=== PATIENT | male | born 1945 | race Caucasian/White ===

== ENCOUNTER 2017-05-16 08:26 | Emergency (ER) | payer OTHER, MEDICARE ==
--- NOTE | 2017-05-16 08:47 | EDPHY ---
H & P Time Seen by Provider: 05/16/17 08:41 HPI/ROS: Chief complaint. Cough, joint pain, fever HPI. 71-year-old male 4 day history of upper respiratory symptoms and congestion. He has been using [id number] medications. He has been coughing that is dry and nonproductive. Low-grade fevers at home to 99 degrees. No shortness of breath or chest discomfort. Feels achy in all his joints but they are not swollen. No abdominal pain, vomiting/diarrhea, urinary symptoms. No rash. No recent travel or known exposures to Infectious Disease. ROS Constitutional. Fever Eyes. no problems with vision ENT. Slight sore throat and congestion Cardiovascular. no chest pain Respiratory. Cough but no shortness of breath Abdominal. no abdominal pain, no nausea/vomiting, no diarrhea . no problems urinating MS. no calf pain/swelling, no neck/back pain; joint pain and myalgias Skin. no rash Lymph. no swollen glands Neuro. no headache, no dizziness, no difficulty walking or with speech Past Medical/Surgical History: Hypertension, hypothyroid Social History: , nonsmoker, no alcohol Smoking Status: Never smoked Physical Exam: General Appearance: Alert well-developed male mild distress vital signs are stable. Afebrile Eyes: Pupils equal and round no pallor or injection. ENT, Mouth: Mucous membranes are moist. Pharynx mildly injected without exudate. Respiratory: There are no retractions, lungs are clear to auscultation. Cardiovascular: Regular rate and rhythm. Gastrointestinal: Abdomen is soft and nontender, no masses, bowel sounds normal. Neurological: Awake and alert, sensory and motor exams grossly normal. Skin: Warm and dry, no rashes. Musculoskeletal: Neck is supple nontender. Extremities symmetrical, full range of motion. Psychiatric: Patient is oriented X 3, there is no agitation. Constitutional: Initial Vital Signs Temperature (C) 37.0 C 05/16/17 08:30 Heart Rate 88 05/16/17 08:30 Respiratory Rate 18 05/16/17 08:30 Blood Pressure 156/82 H 05/16/17 08:30 O2 Sat (%) 94 05/16/17 08:30 O2 Delivery Mode Room Air Allergies/Adverse Reactions: No Known Allergies Allergy (Unverified 05/16/17 08:28) Home Medications: Medication Instructions Recorded Azithromycin [Zithromax] 250 mg PO DAILY #6 tab 05/16/17 Benzonatate [Tessalon Pearles (RX)] 100 mg PO Q4-6PRN PRN #14 cap 05/16/17 HCTZ (*) 05/16/17 Levothyroxine 05/16/17 Lisinopril 05/16/17 Medical Decision Making - Diagnostics Imaging Results: Imaging Impressions Chest X-Ray 05/16/17 08:47 Impression: 1. Mild airways disease/bronchitis. 2. No pneumonia or effusion. Chest x-ray reviewed by me shows no evidence of pneumonia Procedures: IV normal saline ED Course/Re-evaluation: Recheck at 10:10 a.m.. Patient is stable though coughing. The patient, his , and I reviewed laboratory evaluation and chest x-ray. Patient does not have influenza by swab. He does have significant hyponatremia. I recommended admission for the patient. He refuses and we discussed risks and benefits of low sodium in the importance of having it recheck tomorrow as it may be lower tomorrow and require admission. He expresses understanding and agreement. We are trying to get hold of his regular physician Dr. Moreira to close the loop and make sure the patient gets followed up for his hyponatremia. I will write the patient in outpatient laboratory slip for Chem 7 with results to be sent to Dr. Moreira. Patient expresses agreement with this plan I consulted and discussed the case with Dr. Kurtz on-call for Dr. Moreira who understands the treatment plan and will look for patient's Chem 7 tomorrow more 10:55 a.m. I re discussed this plan with the patient and his . They expressed understanding and agreement Differential Diagnosis: This is likely viral syndrome though negative influenza swabs. It appears the patient is having inappropriate secretion of ADH causing hyponatremia. No evidence for pneumonia - Data Points Laboratory Results: Laboratory Results 05/16/17 08:05 05/16/17 08:05 05/16/17 05/16/17 05/16/17 08:30 08:05 08:05 WBC 12.42 10^3/uL H 10^3/uL (3.80-9.50) RBC 5.06 10^6/uL 10^6/uL (4.40-6.38) Hgb 15.8 g/dL g/dL (13.7-17.5) Hct 43.0 % % (40.0-51.0) MCV 85.0 fL fL (81.5-99.8) MCH 31.2 pg pg (27.9-34.1) MCHC 36.7 g/dL g/dL (32.4-36.7) RDW 12.7 % % (11.5-15.2) Plt Count 245 10^3/uL 10^3/uL (150-400) MPV 8.8 fL fL (8.7-11.7) Neut % (Auto) 68.7 % % (39.3-74.2) Lymph % (Auto) 16.3 % % (15.0-45.0) [place] % (Auto) 11.8 % % (4.5-13.0) Eos % (Auto) 2.0 % % (0.6-7.6) Baso % (Auto) 0.5 % % (0.3-1.7) Nucleat RBC Rel Count 0.0 % % (0.0-0.2) Absolute Neuts (auto) 8.54 10^3/uL H 10^3/uL (1.70-6.50) Absolute Lymphs (auto) 2.02 10^3/uL 10^3/uL (1.00-3.00) Absolute Monos (auto) 1.46 10^3/uL H 10^3/uL (0.30-0.80) Absolute Eos (auto) 0.25 10^3/uL 10^3/uL (0.03-0.40) Absolute Basos (auto) 0.06 10^3/uL 10^3/uL (0.02-0.10) Absolute Nucleated RBC 0.00 10^3/uL 10^3/uL (0-0.01) Immature Gran % 0.7 % % (0.0-1.1) Immature Gran # 0.09 10^3/uL 10^3/uL (0.00-0.10) Sodium 126 mEq/L L mEq/L (135-145) Potassium 4.0 mEq/L mEq/L (3.5-5.2) Chloride 91 mEq/L L mEq/L (97-110) Carbon Dioxide 26 mEq/l mEq/l (22-31) Anion Gap 9 mEq/L mEq/L (8-16) BUN 11 mg/dL mg/dL (7-23) Creatinine 0.7 mg/dL mg/dL (0.7-1.3) Estimated GFR > 60 Glucose 90 mg/dL mg/dL (70-100) Calcium 8.3 mg/dL L mg/dL (8.5-10.4) Nasal Influenza A PCR NEGATIVE FOR FLU A (NEGATIVE) Nasal Influenza B PCR NEGATIVE FOR FLU B (NEGATIVE) Medications Given: Discontinued Medications Sodium Chloride (Ns) 1,000 mls @ 0 mls/hr IV ONCE ONE; Wide Open PRN Reason: Protocol Stop: 05/16/17 08:48 Last Admin: 05/16/17 09:08 Dose: 1,000 mls Departure - Departure Disposition: Home, Routine, Self-Care Clinical Impression: Viral syndrome, Hyponatremia Condition: Fair Instructions: Hyponatremia (ED), Viral Syndrome (ED) Additional Instructions: Zithromax is antibiotic. Tessalon pearls for cough. Return for worsening symptoms. It is important to have your blood drawn and sodium recheck tomorrow. If it is lower you will require hospitalization. Referrals: NICHOLE MOREIRA [Primary Care Provider] - 1 day without fail Prescriptions: Azithromycin [Zithromax] 250 mg PO DAILY #6 tab Benzonatate [Tessalon Pearles (RX)] 100 mg PO Q4-6PRN PRN #14 cap PRN Reason: Cough, Moderate
[2017-05-16 09:00] VITALS: TEMP 98.6
[2017-05-16] MEDS: NS 1,000 ML IV ONE ×2 (09:08→09:13)
[2017-05-16 09:24] LABS: PLATELET COUNT 245 10^3/uL (150-400)
[2017-05-16 11:10] VITALS: BP 136/74; PULSE 90; RESP 16; O2SAT 93
== END 2017-05-16 11:10 | disposition home or self-care (01) ==
DX: B34.9 Viral infection, unspecified (principal); E87.1 Hypo-osmolality and hyponatremia; E86.9 Volume depletion, unspecified; I10 Essential (primary) hypertension

== ENCOUNTER 2017-05-16 20:34 | Inpatient (IN) | payer OTHER, MEDICARE ==
--- NOTE | 2017-05-16 20:56 | EDPHY ---
General Time Seen by Provider: 05/16/17 20:41 Narrative: CHIEF COMPLAINT: Weakness HISTORY OF PRESENT ILLNESS: Patient arrives by ambulance and is seen at time arrival. He complains of weakness and some paresthesia. Weakness has been present for several days. It has been gradual. Constant duration. He has also had a cough that is mostly on productive. Has some body aches, subjective fevers. He was seen earlier this morning with laboratory studies and chest x-ray. There is no evidence of pneumonia. He did have a moderate hyponatremia. He was recommended admission to the hospital but declined. He was discharged home with strict ED precautions and instructions to have a sodium checked again tomorrow morning. This was discussed with the partner of his primary care physician. He said he left, attempted to go shopping and then became even more weak in earlier. He had a short period of paresthesia in both lower extremities and both arms. It was worse on the right than the left. Resolved nearly an hour ago. He has no headache. No neck pain. His denies any facial droop or slurred speech. No other associated complaints or modifying factors. REVIEW OF SYSTEMS: Ten systems reviewed and are negative unless otherwise noted in the HPI PCP: Dr. Moreira SPECIALISTS: None PAST MEDICAL HISTORY: Hypertension, hypothyroid PAST SURGICAL HISTORY: No recent surgeries SOCIAL HISTORY: Nonsmoker. No drug or alcohol use. 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 No wheezing or crackles. Cardiovascular: Tachycardic rate. Regular rhythm. No murmur. Gastrointestinal: Abdomen is soft and nontender Back: non-tender, no bony abnormalities Neurological: GCS 15. A&O, nonfocal, normal gait. Symmetric sensory to the lower extremities. Symmetric sensory to upper extremities. Strength is 4/5 in all 4 extremities. Skin: Warm and dry, no rash no petechiae or purpura. Extremities: Nontender, no pedal edema. Symmetric range of motion. Psychiatric: Mood and affect normal DIFFERENTIAL DIAGNOSES: Including but not limited to hyponatremia, paresthesia, weakness, dehydration, pneumonia, lower respiratory infection, TA, CVA MDM: 8:50 p.m. Increasing weakness with hyponatremia. He did have paresthesia earlier today that resolved. He has no unilateral complaints at this time. His neuro exam does reveal 4/5 strength but is otherwise unremarkable. Mild tachycardia. He was given 100 mL of saline EN route which we have turned off pending the repeat sodium evaluation. 9:30 p.m. Patient re-evaluated. No improvement no worsening. Vital signs remained stable with mild intermittent tachycardia. Sodium as returned at 130 is, which is an improvement from 126 earlier today. I have not ordered any IV fluid 10:15 p.m. Case discussed with hospitalist Dr. Lucila Choi. We discussed the patient's 1st visit this morning and current visit. We discussed admission to her service and he has been admitted in stable condition. He has not yet provided a urine sample. His respiratory pathogen panel is pending. 11:00 p.m. Patient has been admitted in stable condition. Unremarkable stay in the emergency department. Please see the note of Dr. Choi for further care. Respiratory pathogen panel still pending SUPERVISION: Patient was independently examined, but I discussed the case with my secondary supervising physician Dr. Cassidy - History Smoking Status: Never smoked - Objective Vital Signs: Initial Vital Signs Temperature (C) 99.0 F 05/16/17 20:34 Heart Rate 103 H 05/16/17 20:34 Respiratory Rate 16 05/16/17 20:34 Blood Pressure 156/88 H 05/16/17 20:34 O2 Sat (%) 92 05/16/17 20:34 O2 Delivery Mode Room Air Allergies/Adverse Reactions: No Known Allergies Allergy (Unverified 05/16/17 08:28) Home Medications: Medication Instructions Recorded Azithromycin [Zithromax] 250 mg PO DAILY #6 tab 05/16/17 Benzonatate [Tessalon Pearles (RX)] 100 mg PO Q4-6PRN PRN #14 cap 05/16/17 HCTZ (*) 05/16/17 Levothyroxine 05/16/17 Lisinopril 05/16/17 Laboratory Results: Laboratory Results 05/16/17 20:30 05/16/17 20:30 05/16/17 05/16/17 05/16/17 20:30 20:30 20:30 WBC 12.88 10^3/uL H 10^3/uL (3.80-9.50) RBC 5.32 10^6/uL 10^6/uL (4.40-6.38) Hgb 16.5 g/dL g/dL (13.7-17.5) Hct 45.2 % % (40.0-51.0) MCV 85.0 fL fL (81.5-99.8) MCH 31.0 pg pg (27.9-34.1) MCHC 36.5 g/dL g/dL (32.4-36.7) RDW 12.8 % % (11.5-15.2) Plt Count 288 10^3/uL 10^3/uL (150-400) MPV 9.1 fL fL (8.7-11.7) Neut % (Auto) 59.8 % % (39.3-74.2) Lymph % (Auto) 25.3 % % (15.0-45.0) [place] % (Auto) 10.5 % % (4.5-13.0) Eos % (Auto) 3.0 % % (0.6-7.6) Baso % (Auto) 0.5 % % (0.3-1.7) Nucleat RBC Rel Count 0.0 % % (0.0-0.2) Absolute Neuts (auto) 7.71 10^3/uL H 10^3/uL (1.70-6.50) Absolute Lymphs (auto) 3.26 10^3/uL H 10^3/uL (1.00-3.00) Absolute Monos (auto) 1.35 10^3/uL H 10^3/uL (0.30-0.80) Absolute Eos (auto) 0.39 10^3/uL 10^3/uL (0.03-0.40) Absolute Basos (auto) 0.06 10^3/uL 10^3/uL (0.02-0.10) Absolute Nucleated RBC 0.00 10^3/uL 10^3/uL (0-0.01) Immature Gran % 0.9 % % (0.0-1.1) Immature Gran # 0.11 10^3/uL H 10^3/uL (0.00-0.10) Sodium 130 mEq/L L mEq/L (135-145) Potassium 4.2 mEq/L mEq/L (3.5-5.2) Chloride 90 mEq/L L mEq/L (97-110) Carbon Dioxide 23 mEq/l mEq/l (22-31) Anion Gap 17 mEq/L H mEq/L (8-16) BUN 14 mg/dL mg/dL (7-23) Creatinine 0.7 mg/dL mg/dL (0.7-1.3) Estimated GFR > 60 Glucose 105 mg/dL H mg/dL (70-100) Serum Osmolality 273 mosmo/kg L mosmo/kg (280-297) Calcium 8.7 mg/dL mg/dL (8.5-10.4) TSH 3.140 uIU/mL uIU/mL (0.465-4.680) Departure - Departure Disposition: [facility] Inpatient Acute Clinical Impression: Hyponatremia with decreased serum osmolality, Lower respiratory infection Condition: Good
[2017-05-16 21:05] LABS: PLATELET COUNT 288 10^3/uL (150-400)
--- NOTE | 2017-05-16 21:32 | CPEKG ---
Heart Rate: 87 RR Interval: 690 P-R Interval: 216 QRSD Interval: 144 QT Interval: 396 QTC Interval: 477 P [place]: 39 QRS [place]: -17 T Wave [place]: -12 EKG Severity - ABNORMAL ECG - EKG Impression: SINUS RHYTHM EKG Impression: RIGHT BUNDLE BRANCH BLOCK Electronically Signed By: Harmony Cassidy 16-May-2017 23:22:34
[2017-05-16] MEDS ORDERED: ACETAMINOPHEN 325 MG TAB PO PRN (22:39)
[2017-05-16] MEDS ORDERED: HYDROCODONE/APAP 5/325 TAB PO PRN (22:39)
[2017-05-16] MEDS ORDERED: ONDANSETRON 4 MG/2 ML VIAL IVP PRN (22:39)
[2017-05-17 05:07] LABS: PLATELET COUNT 253 10^3/uL (150-400)
[2017-05-17 05:15] LABS: INR 1.1 (0.83-1.16); PROTIME(PATIENT) 14.4 SEC (12.0-15.0)
[2017-05-17] MEDS: LORazepam 2 MG/ML INJ IVP PRN (06:21)
[2017-05-17] MEDS ORDERED: PROPOFOL/EMULSION 1,000 MG/100 ML BOTTLE IV ONE (08:07)
[2017-05-17] MEDS ORDERED: fentanYL/NACL/100 ML BAG IV ONE (08:08)
[2017-05-17] MEDS ORDERED: hydrALAZINE 20 MG/ML VIAL IVP PRN (08:14)
[2017-05-17] MEDS: PROPOFOL/EMULSION 100 ML IV SCH (08:30)
[2017-05-17] MEDS: fentaNYL/NACL 100 ML IV SCH (08:30)
--- NOTE | 2017-05-17 08:35 | GPN ---
[f rep st] PROCEDURE NOTE PROCEDURE: Intubation. INDICATION: Hypercarbic respiratory failure. ANESTHESIA: Patient was given Versed 2 mg and rocuronium 56 IV. DESCRIPTION OF PROCEDURE: Procedure was performed in the intensive care unit. Continuous pulse ox, EKG and blood pressure monitoring. Via GlideScope, patient was intubated with a #7.5 endotracheal tube and taped at 23 cm at the lip. T tonya position was confirmed via capnograph. Patient tolerated the procedure well. There were no apparent complications. Portable chest x-ray has been called for. /[id number]/MODL
--- NOTE | 2017-05-17 08:40 | GHP ---
[f rep st] HISTORY AND PHYSICAL DATE OF ADMISSION: 05/16/2017 SOURCE: Patient provides history, appears reliable, his EMR was reviewed and case discussed with the accepting hospitalist provider. CHIEF COMPLAINT: Weakness and fall with paresthesias. HISTORY OF PRESENT ILLNESS: This is a very pleasant 71-year-old gentleman with past medical history significant for benign essential hypertension, hypothyroidism, who overall is a very healthy gentlema n, who presents to the emergency department for the 2nd time in the same day with complaints of progr essive generalized weakness in bilateral extremities with associated paresthesias. Patient with a re cent upper respiratory infection over the last several days. He reports a positive sick contact of h is girlfriend with whom he lives. Patient is reporting a productive cough with subjective fevers, my algias, and low-grade fever at home. Patient was initially evaluated in the emergency department ear lier in the day and was found to have moderate hyponatremia of 126. Admission was recommended. [place] concepcion, patient declined and he was discharged home with a firm plan to repeat a sodium the following da y with his PCP, who was contacted. The patient reports that he has been having increasing paresthesi as that started in his feet, right greater than the left. He has also had some paresthesias in his u pper extremities bilaterally, on the distal hands. He denies any neck pain. No headache. No change s in vision, difficulty in breathing, or chest pain. Shortly after patient returned home, he subsequently had continued weakness and progressive with a fa ll. The patient denies any head injury, loss of consciousness, and states that his leg gave out and he fell to the floor. He denies any focal pains or joint pains, but complains of bilateral lower ext remity and upper extremity weakness. From the time that patient arrived to the medical floor, over a few hours, he had developed significant weakness in his upper extremities to the point that he was n o longer able to push the call button. He subsequently was not able to move his extremities, and at that point, I was able to visit the patient and complete the admission. Patient was noted to have very limited movement of his distal right upper extremity. He was not able to move the left, which is flaccid. He had increased tone and decreased deep tendon reflexes. Terri ent was sent for stat CT of his head, neck, and lumbar spine for complaints of back pain and recent f all. Patient denied any neck pain, but he was having the bilateral upper extremity weakness, to the point he was not able to lift his arms. Report with discussion with the Radiology noted patient had severe stenosis at L4-5, approximately 3 mm, with cervical spine noting [id number] spinal estefania nosis at C4-5, 5-6, and 6-7. Emergent MRI of the brain, neck, and lumbar spine were recommended and patient was sent urgently down this morning. Patient has denied any fecal or urinary incontinence or retention. He did have a void during this stay and also had noted he felt like he had to have a BM. REVIEW OF SYSTEMS: Negative except as noted above. ALLERGIES: No known drug allergies. HOME MEDICATIONS: Lisinopril, levothyroxine, HCTZ, Tessalon Perles, azithromycin, which were ordered today. Patient reports that he was able to take 2 tabs of his azithromycin 1st day, bolus dose. PAST MEDICAL HISTORY: Significant for benign essential hypertension, hypothyroidism. PAST SURGICAL HISTORY: Colonoscopy. FAMILY HISTORY: Grandfather with CVA, otherwise negative. 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 He does not smoke, drink, or do drugs. He lives with his girlfriend. COR STATUS: Full. PHYSICAL EXAMINATION: VITAL SIGNS: Upon arrival to the emergency department, blood pressure 156/88, heart rate is 103, respiratory rate 16, O2 saturation 92% on room air with a temperature of 37.2. V itals available at the time of interview: Blood pressure 159/90, heart rate is 89, respiratory rate 16, O2 saturation 97% on room air. GENERAL: No acute distress, pleasant adult gentleman is sitting up in bed. HEAD: Normocephalic, atraumatic. EYES: Extraocular muscles are intact. Pupils equal, round, reactive to light bilaterally and symmetric. No scleral icterus. Patient does have a little bit of conjunctival injection in the left eye. Is wearing glasses. ENT: Mucous membranes appear sl ightly dry. No oropharyngeal erythema or exudates. No nasal discharge. NECK: Supple. Trachea mid line. CV: Regular rate and rhythm. No murmurs, rubs, or gallops appreciated. RESPIRATORY: Lungs are clear to auscultation bilaterally. No wheezes, rales, or rhonchi appreciated. ABDOMEN: Obese, soft, nontender to palpation. No rebound, guarding, or masses appreciated. : No suprapubic tende rness to palpation. No Reddy catheter in place. MUSCULOSKELETAL: Patient with increased tone in hi s lower and upper extremities. He has diminished DTRs bilateral lower extremities and upper extremit ies. Exam limited in the lower extremities secondary to patient's weakness. Patient is unable to mo ve his left upper extremity at all. There is no increased tone, it is almost flaccid. Right extremi ty, patient is able to move minimally his distal right upper extremity. Cranial nerves 2-[address] and symmetric bilaterally. PSYCH: Patient is awake, alert, and oriented x4. He is calm, coopera tive, pleasant. Thought process, content, and questions are appropriate. LABORATORY STUDIES: WBC 12.88, H and H is 16.5 and 45.2, MCV of 85.0, platelet count is 288, no band s. PT is 14.4, INR is 1.10, PTT is 30.8. Sodium is 130, potassium is 4.2, chloride is 90, CO2 is 23 , anion gap 17, BUN 14, creatinine 0.7, GFR greater than 60, glucose 105. Serum osmolality 273, calc ium 8.7, TSH 3.14. UA, random creatinine is 48.8, random sodium 26, specific gravity 1.009, pH is 6. 0, 1+ ketones, otherwise negative. Respiratory panel, PCR is pending. EKG reviewed myself showing normal sinus rhythm in the 80s with a right bundle branch block. No acut e ST changes. QTc is 477. CT head, cervical spine, lumbar spine images reviewed. Case discussed with Radiology, who noted head CT showed microvascular ischemic changes with atrophy. No bleeding or mass effect was noted. Cervi bryant spine showed dywfsqvy-[id number] stenosis at C4-5, C5-6 and C6-7. Lumbar spine CT showed severe s tenosis L4-5, approximately down to 3-mm. Recommended MRI of brain, cervical, and lumbar spine. ASSESSMENT AND PLAN: This is a pleasant 71-year-old gentleman with recent upper respiratory infectio n symptoms, who is now complaining of progressive weakness in all extremities. 1. Weakness. Differential diagnosis is concerning for possible Guillain-L[place] versus spinal stenosi s versus other potentially demyelinating disorder. We will proceed with an urgent MRI of the brain, cervical spine, and lumbar spine. Neurology will be consulted, pending MRI imaging and findings. Pl an for LP, in addition. The patient also was initially admitted to the medical floor but transferred to the step-down unit for his progressive weakness and symptoms, as he was not even able to raise hi s hand or have enough strength to push the call button. 2. Hyponatremia is now mildly decreased upon repeat. His initial presenting earlier in the day was 126. Repeated was 132. He did receive some IV fluids prior to arrival. Urine studies and evaluatio n are consistent with a diuretic therapy, which we will hold at this time. The patient did receive s ome IV fluids. Will plan to hold off on additional at this time and await repeat BMP later this morn ing. 3. Viral bronchitis. Supportive care at this time. Patient with persistent cough. Chest x-ray neg ative for evidence of pneumonia earlier in the initial ER visit. 4. Benign essential hypertension. Blood pressure is mildly elevated. Hydralazine available p.r.n. 5. Conjunctivitis, left eye greater than the right, likely viral in etiology. Supportive care with [employer]. 6. Hypothyroidism. TSH is within normal limits. Resume L-thyroxine supplementation. Diet is advan sonal. 7. Fluids, electrolyte, nutrition. Saline lock IV. Electrolyte monitoring replacement p.r.n. the patient's diet changed to n.p.o. for MRI and additional studies including possible lumbar puncture. 8. Prophylaxis. Sequential compression devices, holding anticoagulation as patient has lumbar punct ure ordered. 9. Code status is full. 10. Disposition: Patient changed from observation to inpatient status secondary to severity of symp toms and need for additional testing and evaluation. He is not currently able to ambulate secondary to severe weakness and anticipate patient will be here greater than 2 midnights. /[id number]/MODL
--- NOTE | 2017-05-17 08:45 | GCON ---
[f rep st] CONSULTATION TESTER [employer] LEAKAGE CONSULTATION REASON FOR ADMISSION: Neuromuscular weakness. HISTORY OF PRESENT ILLNESS: The patient is a 71-year-old white male with a past medical history of h ypertension and hypothyroidism. He arrived to the emergency room yesterday evening via ambulance com plaining of weakness, apparently has been present for several days. His weakness continued and he wa s subsequently admitted. Apparently, there was no facial droop or slurred speech. Patient is curren tly intubated on mechanical ventilation. All history is gleaned from the medical record. He went fo r MRI earlier this morning and upon return, had marked respiratory failure and was subsequently emerg ently intubated. PAST MEDICAL HISTORY: Significant for hypertension and hypothyroidism. PAST SURGICAL HISTORY: None. ALLERGIES: No known allergies to medications. SOCIAL HISTORY: No history of tobacco use. No history of alcohol use. Work history: He is retired . He is . Has excellent family support. PHYSICAL EXAM: VITAL SIGNS: Blood pressure is 162/91, pulse is 99, respirations 21, temperature 36. 6, oxygen saturation 97% on 2 L. GENERAL: He is a well-developed 71-year-old white male who is bello chance and on mechanical ventilation. HEENT: Eyes are PERRLA, EOMI. Throat: Endotracheal tube is in good position. NECK: Supple. No cervical adenopathy. HEART: Is tachycardic but regular rate and rhythm. LUNGS: Diminished breath sounds, but no wheeze. ABDOMEN: Soft, nontender. Bowel sounds a re present in all 4 quadrants. EXTREMITIES: No clubbing, cyanosis, or edema. LABORATORIES: White count 11.7, hemoglobin 16, hematocrit 45, platelet count is 253. INR is 1.10. Sodium 132, potassium 4.0, chloride 96, CO2 is 24, BUN 12, creatinine 0.6, glucose is 105, urinalysis is negative. Arterial blood gas, this was prior to intubation, pH 7.09, pCO2 of 91, PO2 of 140, bic arb 29, oxygen saturation 97%. IMPRESSION: 1. Neuromuscular weakness. Etiology is unclear. 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 2. Acute hypercarbic respiratory failure, currently stable on mechanical ventilation. 3. History of hypertension. 4. Tachycardia. 5. Hypothyroidism. TSH is normal. RECOMMENDATIONS: 1. Continue mechanical ventilation. 2. Adequate sedation. 3. Neurology to see. 4. Await MRI results. 5. DVT/PE prophylaxis. 6. Stress ulcer prophylaxis. /[id number]/MODL
[2017-05-17] MEDS ORDERED: ENOXAPARIN 40 MG/0.4 ML SYR SC SCH (09:00)
[2017-05-17] MEDS ORDERED: IMMUNE GLOBULIN 20 GM/200 ML VIAL IV SCH (09:00)
[2017-05-17] MEDS ORDERED: IMMUNE GLOBULIN 20 GM/200 ML VIAL IV ONE (09:15)
[2017-05-17] MEDS ORDERED: IMMUNE GLOBULIN 10 GM/100 ML VIAL IV ONE (09:15)
[2017-05-17] MEDS ORDERED: IMMUNE GLOBULIN 5 GM/50 ML VIAL IV ONE (09:15)
--- NOTE | 2017-05-17 09:19 | CPEKG ---
Heart Rate: 108 RR Interval: 556 P-R Interval: 160 QRSD Interval: 144 QT Interval: 384 QTC Interval: 515 P Buchtel: -63 QRS Buchtel: -34 T Wave Buchtel: -27 EKG Severity - ABNORMAL ECG - EKG Impression: SINUS OR ECTOPIC ATRIAL TACHYCARDIA EKG Impression: RIGHT BUNDLE BRANCH BLOCK Electronically Signed By: Santana Costa 17-May-2017 17:22:34
--- NOTE | 2017-05-17 09:22 | PDMN ---
Medical Necessity Medical necessity: tmo x 1 hr; change to IP; los>2mn for severe, progressive generalized weakness bilat extremities w/paresthesias, progressing after admission to inability to ambulate or raise hand to use call light, hyponatremia , and viral bronchitis, r/o Guillain-[place] vs spinal stenosis vs demyelinating disorder; admit and tx to ICU/SCU, urgent MRI brain, cervical and lumbar spine, LP, neuro consult; comorbid htn; per order and H&P 05/17/17
[2017-05-17] MEDS: FAMOTIDINE 20 MG/NACL 50 ML IV SCH ×2 (09:36→20:24)
--- NOTE | 2017-05-17 09:56 | ASMTCMCOM ---
CM Note CM Note Notes: 71yr old male admitted for bilateral weakness, resp failure, hyponatremia. He has a hx of HTN, Hypothyroid, Severe spinal stenosis. Patient now vented in the ICU. CM to follow for discharge needs. Date Signed: 05/17/2017 09:56 AM Electronically Signed By:Karuna Fritz LCSW
[2017-05-17] MEDS ORDERED: ROCURONIUM 100 MG/10 ML VIAL IVP ONE (10:00)
[2017-05-17] MEDS ORDERED: ALTEPLASE 2 MG VIAL IVP PRN (10:00)
[2017-05-17] MEDS ORDERED: FLUMAZENIL 0.5 MG/5 ML MDV IVP ONE (10:00)
[2017-05-17] MEDS ORDERED: MIDAZOLAM 2 MG/2 ML VIAL IVP ONE ×2 (10:00)
[2017-05-17] MEDS: NS 1,000 ML IV SCH ×2 (10:15→20:25)
--- NOTE | 2017-05-17 13:46 | GCON ---
[f rep st] CONSULTATION NEUROLOGIC CONSULTATION. DATE OF CONSULTATION: 05/17/2017 REFERRING PHYSICIAN: Yanet Berry MD HISTORY: The patient is a 71-year-old gentleman whom I am asked to see in neurologic consultation re garding weakness. He came to the hospital yesterday after developing some weakness and went home [facility] from the emergency department but came back later with increasing weakness. The patient is cu rrently intubated, due to respiratory failure, and cannot give a history. I spoke to his significant other, who said that he started having a cough about 4 days ago but was not really complaining of an ything more specific than waking up with cough. Within the last 48 hours, he started having some par esthesias and developed some weakness. There was a description of some body aches and subjective rafael cription of fevers. I did not see pneumonia when he came to the emergency room originally yesterday morning. He had some hyponatremia. He subsequently went home, and she said that he was getting more weakness, to the point where he was having trouble standing to get to the bathroom, and she was worr ied about that so went back to the hospital. The weakness seemed to be a little bit more on the righ t than the left. He came to the hospital and was admitted and has had initially negative workup with a head CT and has had MRI scans with brain, C-spine, and lumbar spine all evaluated but have not yet been read by Radiology. I have reviewed those films, and there is diffuse multifocal white matter c hange on the brain MRI of uncertain significance. No distinct lesions in the cervical spine, other t vides some moderate cervical spinal stenosis but no cord lesions and, in the lumbar spine, there appear s to be severe stenosis at the L4-L5 level. This morning, he went to MRI and then started having some trouble with becoming less responsive and a pparently more weakness and came back to the floor, and was found to have low oxygen saturation in th e upper 60s and, subsequently, less interactive and intubated for protection of airway. He was paral yzed at the time of my acute evaluation. He has never had similar problems before. PAST MEDICAL HISTORY: History of hypertension and hypothyroidism. PAST SURGICAL HISTORY: No recent surgeries. SOCIAL HISTORY: No smoking. No drug or alcohol use. He is apparently retired. FAMILY HISTORY: Noncontributory. PHYSICAL EXAMINATION: NEUROLOGIC: He could not be examined from a neurologic standpoint because he was just paralyzed. IMPRESSION: Total unit time of 70 minutes, with review of his case and discussion with his and discussion with the team and plans for moving forward. 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 Ther e is not clearly central nervous system explanation at this point. Changes on brain MRI look to be r elated to chronic vascular disease, although some demyelination of unknown cause can't be excluded. Changes in the cervical spine should not account for this, and the lumbar spine shows severe central canal stenosis at the L4-L5 level but that would not explain respiratory failure. In order to complete his workup, we want a lumbar puncture as soon as possible to try to clarify the status of CSF and see if the pattern is supportive of Guillain-[place] syndrome. However, I want to st art IVIG, given the severity of weakness, and hope that we can improve his condition quickly. He terrell l get 400 mg/kg per day for 5 consecutive days and initiate supportive therapy as tolerated. He is c urrently intubated, and they will be monitoring that through the ICU. The patient is critically ill with a life-threatening condition that has led to respiratory failure, although his prognosis is one where we would expect stability and gradual improvement. He has some mild hyponatremia which does no t explain these findings. I discussed the case with his significant other, and she will be coming in later today and is aware of the current situation. /[id number]/MODL
--- NOTE | 2017-05-17 15:25 | HOSPPROG ---
Hospitalist Progress Note Assessment/Plan: #Acute hypercarbic resp failure: emergently intubated #Neuromuscular weakness: suspect Guillian-[place]. Appreciate Neuro consultation -IVIG x 5 days, LP done, studies pending #Hyponatremia: mild, not enough to cause profound weakness. IVFs, repeat BMP #Hypothyroidism: NL TSH #h/o HTN: stable here #Tachycardia: resolved #Diet: NPO #DVT ppx: SCDs #Disp: cont ICU for critical illness, requires intubation, IVIG Subjective: emergently intubated this morning after MRI Objective: Vital Signs Temp Pulse Resp BP Pulse Ox 36.8 C 79 18 116/53 L 100 05/17/17 13:00 05/17/17 14:00 05/17/17 14:00 05/17/17 14:00 05/17/17 14:00 05/16/17 05/17/17 05/18/17 05:59 05:59 05:59 Output Total 700 Balance -700 PT 14.4 SEC (12.0-15.0) 05/17/17 04:50 INR 1.10 (0.83-1.16) 05/17/17 04:50 - Time Spent With Patient Time Spent with Patient: greater than 35 minutes Time Spent with Patient: Greater than 35 minutes spent on this patients care, greater than 50% of time spent counseling, educating, and coordinating care regarding the above mentioned plan. - Physical Exam Constitutional: other (sedated) Eyes: PERRL Ears, Nose, Mouth, Throat: other (ET in place) Cardiovascular: regular rate and rhythym Respiratory: no respiratory distress, no rales or rhonchi Gastrointestinal: normoactive bowel sounds Skin: warm Musculoskeletal: other (sedated, not able to participiate) Neurologic: other (sedated) ICD10 Worksheet Patient Problems: Problems Problem Status Onset Guillain Boyd syndrome Acute Hyponatremia with decreased serum osmolality Acute Lower respiratory infection Acute
--- NOTE | 2017-05-17 16:40 | PDRADPN ---
Radiology Procedure Note Date of Procedure: 05/17/17 Radiologist: Theo Hernandez Anesthesia: Local (Specify) Pre-op Diagnosis: suboptimal venous access Post-op Diagnosis: same Indication: AMS Procedure: bedside PICC Finding(s): 35cm left UE PICC advanced. Satisfactory position of f/u CXR Inf/Abcess present in the surg proc area at time of surgery?: No Depth: Superfical (Skin SQ) EBL: Minimal Complications: none Specimen(s): none
--- NOTE | 2017-05-17 17:55 | NEUROPROG ---
Subjective: Procedure note: Lumbar puncture performed after informed consent with family and after difficulty in lateral decubitus position obtain fluid, he was place in seated position and there was removal of pink CSF that cleared and a total of about 7mls of CSF was obtained and sent to the lab for studies. Objective: Vital Signs Temp Pulse Resp BP Pulse Ox 36.8 C 79 18 116/53 L 100 05/17/17 13:00 05/17/17 14:00 05/17/17 14:00 05/17/17 14:00 05/17/17 14:00 05/16/17 05/17/17 05/18/17 05:59 05:59 05:59 Output Total 700 Balance -700 PT 14.4 SEC (12.0-15.0) 05/17/17 04:50 INR 1.10 (0.83-1.16) 05/17/17 04:50 Allergies/Adverse Reactions: No Known Allergies Allergy (Unverified 05/16/17 08:28)
[2017-05-17] MEDS: CHLORHEXIDINE GLUCONATE 15 ML UDL PO SCH (20:24)
[2017-05-18] MEDS: NS 1,000 ML IV SCH ×2 (04:15→23:28)
[2017-05-18] MEDS: CHLORHEXIDINE GLUCONATE 15 ML UDL PO SCH ×2 (08:00→20:07)
--- NOTE | 2017-05-18 08:20 | NEUROPROG ---
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 He has received 1 day of IVIG out of 5 total planned. Subjective: The patient has remained intubated overnight. He is not demonstrating any spontaneous movements in the extremities or responses to pain per any reports. He has been utilizing eye blinking for communication with yes and no and seems to be accurate. Objective: Vital Signs Temp Pulse Resp BP Pulse Ox 37.1 C 81 18 122/60 H 100 05/18/17 04:00 05/18/17 07:00 05/18/17 07:00 05/18/17 07:00 05/18/17 07:00 Microbiology 05/17/17 17:45 Gram Stain - Final Cerebral Spinal Fluid Laboratory Results 05/18/17 04:40 05/18/17 04:40 05/17/17 05/18/17 05/19/17 05:59 05:59 05:59 Intake Total 2781 Output Total 1795 Balance 986 PT 14.4 SEC (12.0-15.0) 05/17/17 04:50 INR 1.10 (0.83-1.16) 05/17/17 04:50 Laboratory Tests 05/17/17 17:45 CSF WBC 5 CSF RBC 646 H CSF Neutrophils % 48 H CSF Lymphocytes % 37 CSF Glucose 57 CSF Total Protein 70 H He is awake and utilizing blinking successfully for basic yes no responses to questions. I explained to him what I believe is happening as a source of his weakness. He has partial eye movements and able to elevate eyebrows but does not spontaneously open his eyes. When he tries he is unable to get them fully open. There is no movement to request or with pain. He is areflexic. Allergies/Adverse Reactions: No Known Allergies Allergy (Unverified 05/16/17 08:28)
--- NOTE | 2017-05-18 08:26 | PDINTPN ---
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[place] -IV IG per Neurology * Acute hypercarbic respiratory failure-stable on mechanical ventilation -no change in vent for now -possible tracheostomy in near future * Sedation-adequate * Nutrition-tolerating tube feeds * Hypertension-blood pressure stable * Hypothyroid * VTE prophylaxis * Stress ulcer prophylaxis Subjective: Sedated on mechanical ventilation Objective: Vital Signs Temp Pulse Resp BP Pulse Ox 37.1 C 95 18 111/56 L 100 05/18/17 08:00 05/18/17 08:00 05/18/17 08:00 05/18/17 08:00 05/18/17 08:00 Microbiology 05/17/17 17:45 Gram Stain - Final Cerebral Spinal Fluid Laboratory Results 05/18/17 04:40 05/18/17 04:40 05/17/17 05/18/17 05/19/17 05:59 05:59 05:59 Intake Total 2781 Output Total 1795 Balance 986 PT 14.4 SEC (12.0-15.0) 05/17/17 04:50 INR 1.10 (0.83-1.16) 05/17/17 04:50 Laboratory Results 05/18/17 04:40 05/18/17 04:40 05/18/17 05/18/17 05/17/17 06:15 05:55 17:45 Patient Temperature 36.9 DEGREES DEGREES pCO2 34 mmHg mmHg (34 - 38) pO2 92 mmHg H mmHg (65 - 75) Total CO2 21 mEq/L L mEq/L (23 - 27) ABG pH 7.39 (7.35 - 7.45) ABG PO2/FiO2 Ratio 230 RATIO RATIO ABG HCO3 20 mEq/L L mEq/L (22 - 26) ABG O2 Saturation 97 % H % (92 - 95) ABG Base Excess -3.5 mEq/L L mEq/L (-2.5 - 2.5) O2 Concentration % 40 % % Actual Respiration Rate 18 Set Respiration Rate 18 SIMV YES Tidal Volume 550 End Tidal CO2 34 PEEP 5 Pressure Support 7 Fl Pathologist Review Pending CSF Tube Number 4 CSF Appearance CLEAR CSF Color COLORLESS CSF Supernatant SL. XANTHO H CSF WBC 5 /mm3 /mm3 (0 - 5) CSF RBC 646 /mm3 H /mm3 (0 - 0) CSF Neutrophils % 48 % H % (0 - 6) CSF Lymphocytes % 37 % % (0 - 100) CSF Monos/Macrophage % 15 % % (0 - 45) CSF Glucose 57 mg/dL mg/dL (50 - 75) CSF Total Protein 70 mg/dL H mg/dL (12 - 60) C. difficile Tox (PCR) NEGATIVE 05/17/17 17:45 Gram Stain - Final Cerebral Spinal Fluid CSF Culture - Pending Chest [id number] by myself. Endotracheal tube is in good position. Mild pulmonary edema seen throughout - Time Spent With Patient Time Spent With Patient: 35 min of critical care time spent patient. Case discussed with Neurology, respiratory therapy, nursing and pharmacy. Physical Exam - Physical Exam General Appearance: other (Sedated), No alert EENT: PERRL/EOMI, ET tube Neck: non-tender, full range of motion Respiratory: rhonchi (Few basilar), No respiratory distress, No wheezing Cardiac/Chest: normal peripheral pulses, regular rate, rhythm Peripheral Pulses: 2+: carotid (R), carotid (L), femoral (R), femoral (L), dorsalis-pedis (R), dorsalis-pedis (L) Abdomen: normal bowel sounds, non-tender, soft Male Genitalia: deferred Rectal: deferred Skin: normal color, warm/dry Lymphatic: no adenopathy Extremities: non-tender Neuro/Psych: No alert ICD10 Worksheet Patient Problems: Problems Problem Status Onset Guillain Boyd syndrome Acute Hyponatremia with decreased serum osmolality Acute Lower respiratory infection Acute
[2017-05-18] MEDS ORDERED: BISACODYL 10 MG SUPP PR PRN (08:40)
[2017-05-18] MEDS ORDERED: POLYETHYLENE GLYCOL 3350 17 GM PKT PO PRN (08:40)
[2017-05-18] MEDS ORDERED: LACTULOSE 20 GM/30 ML UDCUP PO PRN (08:40)
[2017-05-18] MEDS ORDERED: MAGNESIUM HYDROXIDE 30 ML UDCUP PO PRN (08:40)
[2017-05-18] MEDS ORDERED: SENNOSIDES/DOCUSATE SODIUM TAB PO SCH (09:00)
[2017-05-18] MEDS: IMMUNE GLOBULIN 20 GM/200 ML VIAL IV SCH (09:40)
[2017-05-18] MEDS: IMMUNE GLOBULIN 5 GM/50 ML VIAL IV SCH (10:03)
[2017-05-18] MEDS: IMMUNE GLOBULIN 10 GM/100 ML VIAL IV SCH (10:03)
[2017-05-18] MEDS: FAMOTIDINE 20 MG/NACL 50 ML IV SCH (10:31)
[2017-05-18] MEDS: ENOXAPARIN 40 MG/0.4 ML SYR SC SCH (10:31)
[2017-05-18] MEDS ORDERED: SENNOSIDES 17.6 MG/10 ML UDL TUBE PRN (10:54)
[2017-05-18] MEDS ORDERED: LACTULOSE 20 GM/30 ML UDCUP TUBE PRN (11:00)
[2017-05-18] MEDS ORDERED: POLYETHYLENE GLYCOL 3350 17 GM PKT TUBE PRN (11:00)
[2017-05-18] MEDS ORDERED: HYDROCODONE/APAP 5/325 TAB TUBE PRN (11:00)
[2017-05-18] MEDS ORDERED: MAGNESIUM HYDROXIDE 30 ML UDCUP TUBE PRN (11:00)
[2017-05-18] MEDS: PROPOFOL/EMULSION 100 ML IV SCH ×2 (11:57→23:28)
--- NOTE | 2017-05-18 13:38 | HOSPPROG ---
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 At this point, only able to communicate using eyes. No other spontaneous movements #Hyponatremia: mild, not enough to cause profound weakness. Resolved with fluids #Hypothyroidism: NL TSH #h/o HTN: stable here #Tachycardia: resolved #Diet: NPO #DVT ppx: SCDs #Disp: cont ICU for critical illness, requires intubation, IVIG Subjective: no acute events Objective: Vital Signs Temp Pulse Resp BP Pulse Ox 36.9 C 82 18 125/59 H 100 05/18/17 12:00 05/18/17 13:00 05/18/17 13:00 05/18/17 13:00 05/18/17 13:00 Microbiology 05/17/17 17:45 Gram Stain - Final Cerebral Spinal Fluid Laboratory Results 05/18/17 04:40 05/18/17 04:40 05/17/17 05/18/17 05/19/17 05:59 05:59 05:59 Intake Total 2781 Output Total 1795 175 Balance 986 -175 PT 14.4 SEC (12.0-15.0) 05/17/17 04:50 INR 1.10 (0.83-1.16) 05/17/17 04:50 - Physical Exam Constitutional: no apparent distress, other (sedated) Eyes: PERRL Ears, Nose, Mouth, Throat: moist mucous membranes, other (ET tube in place) Cardiovascular: regular rate and rhythym, no murmur, rub, or gallop Respiratory: no respiratory distress Gastrointestinal: normoactive bowel sounds, other (rectal tune) Genitourinary: no bladder fullness, mccann in urethra Skin: warm Musculoskeletal: No full muscle strength Neurologic: other (no spontaneous movements) Psychiatric: encephalopathic ICD10 Worksheet Patient Problems: Problems Problem Status Onset Guillain Boyd syndrome Acute Hyponatremia with decreased serum osmolality Acute Lower respiratory infection Acute
--- NOTE | 2017-05-18 15:32 | ASMTCMCOM ---
CM Note CM Note Notes: "Medical Proxy" Patient has not named an MPOA. Spoke to Mela, patient's girlfriend who has been living with him for the past 9yrs. She reports that he has 2 daughters, 1 daughter he doesn't have much contact, the other daughter, Tomasa Sexton [phone] he is in contact. Mela reports that patient also has a sister, Marizol Canela [phone] that he is close to. Mela thought Tomasa would make the best Medical Proxy. Marizol also in agreement that Tomasa could be in the position of medical decision maker. Tomasa [phone] has agreed to be the Med Proxy. Patient continues on the vent, unable to move his limbs, answers "yes" and "no" with eye blinks and eyebrow raising. 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 Date Signed: 05/18/2017 03:32 PM Electronically Signed By:Karuna Fritz LCSW
[2017-05-18] MEDS: fentaNYL/NACL 100 ML IV SCH (15:52)
[2017-05-18] MEDS: FAMOTIDINE 20 MG TAB TUBE SCH (20:07)
[2017-05-18] MEDS: PETROLAT,WHT/MIN OIL/SOD CHL 3.5 GM OPHT.OINT EACHEYE SCH ×2 (20:07→23:28)
[2017-05-18] MEDS: SENNOSIDES 17.6 MG/10 ML UDL TUBE SCH (22:06)
[2017-05-19] MEDS: PETROLAT,WHT/MIN OIL/SOD CHL 3.5 GM OPHT.OINT EACHEYE SCH ×5 (04:42→20:12)
[2017-05-19] MEDS ORDERED: PROTOCOL POTASSIUM 1 DOSE MISC PRN ×2 (06:25→20:05)
[2017-05-19] MEDS: POTASSIUM Cl (KCl) 10 MEQ in NS 50 ML IV SCH ×6 (07:43→15:35)
[2017-05-19] MEDS: CHLORHEXIDINE GLUCONATE 15 ML UDL PO SCH ×2 (07:58→20:11)
--- NOTE | 2017-05-19 08:37 | PDINTPN ---
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 No improvement -IV IG per Neurology * Acute hypercarbic respiratory failure-stable on mechanical ventilation -no change in vent for now -will not consider tracheostomy until dated 12-17 * Sedation-adequate * Nutrition-tolerating tube feeds. Consider PEG tube placement approximate time a tracheostomy * Hypertension-blood pressure stable * Hypothyroid * VTE prophylaxis * Stress ulcer prophylaxis Subjective: Sedated on mechanical ventilation Objective: Vital Signs Temp Pulse Resp BP Pulse Ox 36.9 C 84 18 121/69 H 95 05/19/17 08:00 05/19/17 08:00 05/19/17 08:00 05/19/17 08:00 05/19/17 08:00 Microbiology 05/18/17 16:45 - Final Sputum, Induced/Suctioned 05/17/17 17:45 Gram Stain - Final Cerebral Spinal Fluid Laboratory Results 05/19/17 04:40 05/19/17 04:40 05/18/17 05/19/17 05/20/17 05:59 05:59 05:59 Intake Total 2781 2982 Output Total 1795 1955 100 Balance 986 1027 -100 PT 14.4 SEC (12.0-15.0) 05/17/17 04:50 INR 1.10 (0.83-1.16) 05/17/17 04:50 Chest [id number] by myself. Endotracheal tube in good position. PICC line in good position. Possibly right hemidiaphragm. Otherwise clear - Time Spent With Patient Time Spent With Patient: 35 min of critical care time spent with patient. Case discussed with Neurology, respiratory therapy and nursing. Physical Exam - Physical Exam General Appearance: other, No alert EENT: PERRL/EOMI, ET tube Neck: non-tender, full range of motion Respiratory: chest non-tender, lungs clear, normal breath sounds Cardiac/Chest: normal peripheral pulses, regular rate, rhythm Peripheral Pulses: 2+: carotid (R), carotid (L), femoral (R), femoral (L), dorsalis-pedis (R), dorsalis-pedis (L) Abdomen: normal bowel sounds, non-tender, soft Male Genitalia: deferred Rectal: deferred Skin: normal color, warm/dry Extremities: non-tender Neuro/Psych: No no motor/sensory deficits ICD10 Worksheet Patient Problems: Problems Problem Status Onset Guillain Boyd syndrome Acute Hyponatremia with decreased serum osmolality Acute Lower respiratory infection Acute
--- NOTE | 2017-05-19 08:37 | NEUROPROG ---
Assessment: The total unit time 15 min. I spoke to the patient about his condition and let him know what is happening and the goal of trying to treat him for 5 days and looking for improvements. At this point, it is too early to make a strong prognosis but the prognosis would be considered poor at this point given this rapidity of onset and severity. Subjective: The patient remains lightly sedated and on the ventilator with quadriplegia and no demonstrable respiratory efforts. He has some facial movements the consist of some mild eye closure but cannot open his eyes. When he attempts to do so he wrinkle his forehead. I do see some movement around the mouth as well. He does continue to comprehend what we are saying as best we can tell. Objective: Vital Signs Temp Pulse Resp BP Pulse Ox 36.9 C 84 18 121/69 H 95 05/19/17 08:00 05/19/17 08:00 05/19/17 08:00 05/19/17 08:00 05/19/17 08:00 Microbiology 05/18/17 16:45 - Final Sputum, Induced/Suctioned 05/17/17 17:45 Gram Stain - Final Cerebral Spinal Fluid Laboratory Results 05/19/17 04:40 05/19/17 04:40 05/18/17 05/19/17 05/20/17 05:59 05:59 05:59 Intake Total 2781 2982 Output Total 1795 1955 100 Balance 986 1027 -100 PT 14.4 SEC (12.0-15.0) 05/17/17 04:50 INR 1.10 (0.83-1.16) 05/17/17 04:50 As outlined above, we do not believe he has encephalopathy but has quadriplegia. There is severe facial weakness as well. Allergies/Adverse Reactions: No Known Allergies Allergy (Unverified 05/16/17 08:28)
[2017-05-19] MEDS: IMMUNE GLOBULIN 20 GM/200 ML VIAL IV SCH (09:17)
[2017-05-19] MEDS: ENOXAPARIN 40 MG/0.4 ML SYR SC SCH (09:40)
[2017-05-19] MEDS: FAMOTIDINE 20 MG TAB TUBE SCH ×2 (09:40→20:11)
[2017-05-19] MEDS: SENNOSIDES 17.6 MG/10 ML UDL TUBE SCH ×2 (09:43→20:00)
[2017-05-19] MEDS: fentaNYL/NACL 100 ML IV SCH (10:03)
[2017-05-19] MEDS: IMMUNE GLOBULIN 5 GM/50 ML VIAL IV SCH (10:05)
[2017-05-19] MEDS: IMMUNE GLOBULIN 10 GM/100 ML VIAL IV SCH (10:05)
[2017-05-19] MEDS: PROPOFOL/EMULSION 100 ML IV SCH ×2 (11:03→23:35)
[2017-05-19] MEDS: NS 1,000 ML IV SCH ×2 (11:03→22:03)
--- NOTE | 2017-05-19 13:49 | HOSPPROG ---
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 At this point, only able to communicate using eyes. No other spontaneous movements #Hyponatremia: mild, not enough to cause profound weakness. Resolved with fluids #Hypothyroidism: NL TSH #h/o HTN: stable here #Tachycardia: resolved #Diet: NPO #Dysphagia: Tube feeds #DVT ppx: Lovenox #Disp: cont ICU for critical illness, requires intubation, IVIG Subjective: day 3 of IVIG. Still vented Objective: Vital Signs Temp Pulse Resp BP Pulse Ox 36.9 C 85 18 129/71 H 96 05/19/17 12:00 05/19/17 12:00 05/19/17 12:00 05/19/17 12:00 05/19/17 12:00 Microbiology 05/18/17 16:45 - Final Sputum, Induced/Suctioned 05/17/17 17:45 Gram Stain - Final Cerebral Spinal Fluid Laboratory Results 05/19/17 04:40 05/19/17 12:30 05/18/17 05/19/17 05/20/17 05:59 05:59 05:59 Intake Total 2781 2982 Output Total 1795 1955 350 Balance 986 1027 -350 PT 14.4 SEC (12.0-15.0) 05/17/17 04:50 INR 1.10 (0.83-1.16) 05/17/17 04:50 - Physical Exam Constitutional: no apparent distress Ears, Nose, Mouth, Throat: moist mucous membranes Cardiovascular: regular rate and rhythym, no murmur, rub, or gallop, No edema Respiratory: no respiratory distress, no rales or rhonchi Gastrointestinal: normoactive bowel sounds Genitourinary: no bladder fullness Skin: warm Musculoskeletal: generalized weakness Neurologic: No AAOx3 Psychiatric: No interacting appropriately Lymph, Heme, Immunologic: No lymphadenopathy, No petechiae ICD10 Worksheet Patient Problems: Problems Problem Status Onset Guillain Boyd syndrome Acute Hyponatremia with decreased serum osmolality Acute Lower respiratory infection Acute
[2017-05-19] MEDS ORDERED: POTASSIUM CL 20 MEQ/15 ML UDCUP TUBE ONE (20:15)
[2017-05-20] MEDS ORDERED: POTASSIUM CL 20 MEQ/15 ML UDCUP TUBE ONE ×3 (02:30→20:45)
[2017-05-20] MEDS: fentaNYL/NACL 100 ML IV SCH ×2 (02:57→20:11)
[2017-05-20] MEDS: PETROLAT,WHT/MIN OIL/SOD CHL 3.5 GM OPHT.OINT EACHEYE SCH ×6 (05:12→22:17)
--- NOTE | 2017-05-20 07:58 | NEUROPROG ---
Assessment: Today's 15 min visit was predominantly review of his case with staff and updating patient and review of his records. He has a critical condition which is life threatening, although he is stable on the ventilator. We are continuing the IVIG for a total of 5 days. We will then monitor for improvements and make determinations about tracheostomy and long-term care plans. Subjective: Patient case reviewed this morning. He remains on the ventilator and has periods of relative awareness and which he can successfully use blinking for yes and no responses to questions. He is not apparently having obvious pain. Objective: Vital Signs Temp Pulse Resp BP Pulse Ox 37.2 C 90 18 149/73 H 95 05/20/17 06:00 05/20/17 06:00 05/20/17 06:00 05/20/17 06:00 05/20/17 06:00 Microbiology 05/18/17 16:45 - Final Sputum, Induced/Suctioned 05/17/17 17:45 Gram Stain - Final Cerebral Spinal Fluid Laboratory Results 05/20/17 05:25 05/20/17 05:25 05/19/17 05/20/17 05/21/17 05:59 05:59 05:59 Intake Total 2982 3924.5 Output Total 1955 1275 Balance 1027 2649.5 PT 14.4 SEC (12.0-15.0) 05/17/17 04:50 INR 1.10 (0.83-1.16) 05/17/17 04:50 He remains hemiplegic with areflexia but has perhaps a little more facial movement. He still does not have spontaneous eye opening. Allergies/Adverse Reactions: No Known Allergies Allergy (Unverified 05/16/17 08:28)
[2017-05-20] MEDS: NS 1,000 ML IV SCH ×2 (08:19→20:33)
[2017-05-20] MEDS: CHLORHEXIDINE GLUCONATE 15 ML UDL PO SCH ×2 (08:20→20:34)
[2017-05-20] MEDS: FAMOTIDINE 20 MG TAB TUBE SCH ×2 (08:36→22:16)
[2017-05-20] MEDS: ENOXAPARIN 40 MG/0.4 ML SYR SC SCH (08:39)
[2017-05-20] MEDS: IMMUNE GLOBULIN 5 GM/50 ML VIAL IV SCH (08:46)
--- NOTE | 2017-05-20 09:30 | PDINTPN ---
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 No improvement -IV IG per Neurology * Acute hypercarbic respiratory failure-stable on mechanical ventilation -no change in vent for now -will not consider tracheostomy until dated 12-17 * Sedation-adequate * Nutrition-tolerating tube feeds. Consider PEG tube placement approximate time a tracheostomy * Hypertension-blood pressure stable * Hypothyroid-TSH okay * VTE prophylaxis * Stress ulcer prophylaxis 05/20/17 09:26 Subjective: Obtunded. No change in neurologic status. Objective: Vital Signs Temp Pulse Resp BP Pulse Ox 37.1 C 100 18 168/89 H 94 05/20/17 08:50 05/20/17 08:50 05/20/17 08:50 05/20/17 08:00 05/20/17 08:50 Microbiology 05/18/17 16:45 - Final Sputum, Induced/Suctioned 05/17/17 17:45 Gram Stain - Final Cerebral Spinal Fluid Laboratory Results 05/20/17 05:25 05/20/17 05:25 05/19/17 05/20/17 05/21/17 05:59 05:59 05:59 Intake Total 2982 3924.5 Output Total 1955 1275 Balance 1027 2649.5 PT 14.4 SEC (12.0-15.0) 05/17/17 04:50 INR 1.10 (0.83-1.16) 05/17/17 04:50 Laboratory Results 05/20/17 05:25 05/20/17 05:25 05/20/17 04:20 Patient Temperature 37.0 DEGREES DEGREES pCO2 36 mmHg mmHg (34 - 38) pO2 67 mmHg mmHg (65 - 75) Total CO2 26 mEq/L mEq/L (23 - 27) ABG pH 7.45 (7.35 - 7.45) ABG PO2/FiO2 Ratio 168 RATIO RATIO ABG HCO3 25 mEq/L mEq/L (22 - 26) ABG O2 Saturation 94 % % (92 - 95) ABG Base Excess 1.7 mEq/L mEq/L (-2.5 - 2.5) O2 Concentration % 40 % % Respiration Rate 18 Set Respiration Rate 18 Assist Control YES Tidal Volume 550 End Tidal CO2 37 PEEP 5 Chest [id number] by myself. Endotracheal tube is in good position. No change overall Laboratory Results 05/20/17 05:25 05/20/17 05:25 05/20/17 05/20/17 05:25 00:45 Sodium 142 mEq/L mEq/L (135 - 145) Potassium 3.7 mEq/L mEq/L (3.5 - 5.2) Chloride 107 mEq/L mEq/L (97 - 110) Carbon Dioxide 27 mEq/l mEq/l (22 - 31) Anion Gap 8 mEq/L mEq/L (8 - 16) BUN 16 mg/dL mg/dL (7 - 23) Creatinine 0.6 mg/dL L mg/dL (0.7 - 1.3) Estimated GFR > 60 Glucose 137 mg/dL H mg/dL (70 - 100) Calcium 7.6 mg/dL L mg/dL (8.5 - 10.4) - Time Spent With Patient Time Spent With Patient: 35 min of critical care time spent with patient. Case discussed with respiratory therapy and nursing Physical Exam - Physical Exam General Appearance: no apparent distress, No alert EENT: PERRL/EOMI, ET tube Neck: non-tender Respiratory: chest non-tender, lungs clear, normal breath sounds Cardiac/Chest: normal peripheral pulses, regular rate, rhythm Abdomen: normal bowel sounds, non-tender, soft Male Genitalia: deferred Rectal: deferred Skin: normal color, warm/dry Extremities: non-tender Neuro/Psych: No alert ICD10 Worksheet Patient Problems: Problems Problem Status Onset Guillain Boyd syndrome Acute Hyponatremia with decreased serum osmolality Acute Lower respiratory infection Acute
[2017-05-20] MEDS ORDERED: POTASSIUM CL 10 MEQ TAB TUBE ONE (09:33)
[2017-05-20] MEDS: IMMUNE GLOBULIN 10 GM/100 ML VIAL IV SCH (09:53)
[2017-05-20] MEDS: SENNOSIDES 17.6 MG/10 ML UDL TUBE SCH ×2 (09:53→22:17)
[2017-05-20] MEDS ORDERED: FUROSEMIDE 20 MG/2 ML VIAL IVP ONE (11:20)
--- NOTE | 2017-05-20 11:29 | HOSPPROG ---
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 At this point, only able to communicate using eyes. No other spontaneous movements #Hyponatremia: mild, not enough to cause profound weakness. Resolved with fluids #Hypothyroidism: NL TSH #HTN, BP has increased overnight, likely due to a combination of mild fluid overload and not on home meds -Lasix x 1 -Decrease IVF, can likely decrease further as TF's are titrated -Restart Lisinopril -Hold off on HCTZ for now #Tachycardia: resolved #Hypokalemia -replace per protocol -provide additional 20meq given Lasix per above -check Mg, previously ok #Diet: NPO #Dysphagia: Tube feeds via PEG -Titrate to goal -Can back off IVF as TF's are titrated #DVT ppx: Lovenox #Disp: cont ICU for critical illness, requires intubation, IVIG total CCT managing this patient who is intubated, has GBS, is on tube feeds, and has signs of fluid overload is 35 minutes. D/w ICU team during rounds. Subjective: BP has increased. Tolerating TF's well via PEG. Still on Vent. Objective: Vital Signs Temp Pulse Resp BP Pulse Ox 37.1 C 111 H 18 168/87 H 90 L 05/20/17 10:50 05/20/17 10:50 05/20/17 10:50 05/20/17 10:00 05/20/17 10:50 Microbiology 05/18/17 16:45 - Final Sputum, Induced/Suctioned Sputum Culture - Final 05/17/17 17:45 Gram Stain - Final Cerebral Spinal Fluid CSF Culture - Final Laboratory Results 05/20/17 05:25 05/20/17 05:25 05/19/17 05/20/17 05/21/17 05:59 05:59 05:59 Intake Total 2982 3924.5 Output Total 1955 1275 Balance 1027 2649.5 PT 14.4 SEC (12.0-15.0) 05/17/17 04:50 INR 1.10 (0.83-1.16) 05/17/17 04:50 - Physical Exam Constitutional: no apparent distress Ears, Nose, Mouth, Throat: moist mucous membranes Cardiovascular: regular rate and rhythym, edema (trace ankle) Respiratory: no respiratory distress, reduced air movement, No expiratory wheeze Gastrointestinal: normoactive bowel sounds Genitourinary: No no bladder fullness Skin: warm Neurologic: No AAOx3 Psychiatric: other (sedated), No interacting appropriately Lymph, Heme, Immunologic: petechiae ICD10 Worksheet Patient Problems: Problems Problem Status Onset Guillain Boyd syndrome Acute Hyponatremia with decreased serum osmolality Acute Lower respiratory infection Acute
[2017-05-20] MEDS: IMMUNE GLOBULIN 20 GM/200 ML VIAL IV SCH (11:42)
[2017-05-20] MEDS: LISINOPRIL 5 MG TAB TUBE SCH (12:18)
[2017-05-20] MEDS: LEVOTHYROXINE 50 MCG TAB TUBE SCH (12:18)
[2017-05-20] MEDS ORDERED: POTASSIUM CL 10 MEQ TAB PO ONE (14:06)
[2017-05-20] MEDS: PROPOFOL/EMULSION 100 ML IV SCH (14:27)
[2017-05-20] MEDS ORDERED: POTASSIUM Cl (KCl) 100 ML IV SCH (20:36)
[2017-05-21] MEDS: PETROLAT,WHT/MIN OIL/SOD CHL 3.5 GM OPHT.OINT EACHEYE SCH ×6 (01:28→20:48)
[2017-05-21] MEDS ORDERED: POTASSIUM Cl (KCl) 50 ML IV ONE ×3 (02:05→14:43)
[2017-05-21] MEDS: NS 1,000 ML IV SCH (06:38)
[2017-05-21] MEDS: LEVOTHYROXINE 50 MCG TAB TUBE SCH (06:38)
[2017-05-21] MEDS: LISINOPRIL 5 MG TAB TUBE SCH (08:34)
[2017-05-21] MEDS: CHLORHEXIDINE GLUCONATE 15 ML UDL PO SCH ×2 (08:34→20:48)
[2017-05-21] MEDS: FAMOTIDINE 20 MG TAB TUBE SCH ×2 (08:34→20:48)
[2017-05-21] MEDS: ENOXAPARIN 40 MG/0.4 ML SYR SC SCH (08:34)
[2017-05-21] MEDS: SENNOSIDES 17.6 MG/10 ML UDL TUBE SCH (08:35)
[2017-05-21] MEDS ORDERED: LIDOCAINE 1% 2 ML INJ ID PRN (08:50)
--- NOTE | 2017-05-21 08:50 | PDINTPN ---
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 No improvement -IV IG per Neurology * Acute hypercarbic respiratory failure-stable on mechanical ventilation -no change in vent for now -will not consider tracheostomy until dated 12-17 * Sedation-adequate * Nutrition-tolerating tube feeds. Consider PEG tube placement approximate time a tracheostomy * Hypertension-blood pressure currently high -will increase antihypertensive therapy * Left lower lobe infiltrate-query pneumonia versus mucous plugging -will perform fiberoptic bronchoscopy today * Hypothyroid-TSH okay * VTE prophylaxis * Stress ulcer prophylaxis Subjective: Sedated Objective: Vital Signs Temp Pulse Resp BP Pulse Ox 37.2 C 91 18 191/99 H 100 05/21/17 06:00 05/21/17 06:00 05/21/17 06:00 05/21/17 08:34 05/21/17 06:00 Microbiology 05/18/17 16:45 - Final Sputum, Induced/Suctioned Sputum Culture - Final 05/17/17 17:45 Gram Stain - Final Cerebral Spinal Fluid CSF Culture - Final Laboratory Results 05/20/17 05:25 05/21/17 04:25 05/20/17 05/21/17 05/22/17 05:59 05:59 05:59 Intake Total 3924.5 3890 Output Total 1275 3700 Balance 2649.5 190 PT 14.4 SEC (12.0-15.0) 05/17/17 04:50 INR 1.10 (0.83-1.16) 05/17/17 04:50 Laboratory Results 05/20/17 05:25 05/21/17 04:25 05/21/17 04:25 Patient Temperature 37.1 DEGREES DEGREES pCO2 40 mmHg H mmHg (34 - 38) pO2 56 mmHg L mmHg (65 - 75) Total CO2 29 mEq/L H mEq/L (23 - 27) ABG pH 7.46 H (7.35 - 7.45) ABG PO2/FiO2 Ratio 140 RATIO RATIO ABG HCO3 28 mEq/L H mEq/L (22 - 26) ABG O2 Saturation 90 % L % (92 - 95) ABG Base Excess 4.6 mEq/L H mEq/L (-2.5 - 2.5) O2 Concentration % 40 % % Respiration Rate 18 Set Respiration Rate 18 Assist Control YES Tidal Volume 550 End Tidal CO2 40 PEEP 5 Chest [id number]-jcchxpnw by myself. Endotracheal tube in good position. There is consolidation left lower lobe. - Time Spent With Patient Time Spent With Patient: 35 min of critical care time spent with patient. Case discussed with Nursing and Respiratory therapy Physical Exam - Physical Exam General Appearance: WD/WN, No alert (Sedated) EENT: PERRL/EOMI, ET tube Neck: non-tender Respiratory: crackles (Left base), No respiratory distress, No wheezing Cardiac/Chest: normal peripheral pulses, regular rate, rhythm Peripheral Pulses: 2+: carotid (R), carotid (L), femoral (R), femoral (L), dorsalis-pedis (R), dorsalis-pedis (L) Abdomen: normal bowel sounds, non-tender, soft Male Genitalia: deferred Rectal: deferred Skin: normal color, warm/dry Extremities: non-tender Neuro/Psych: No alert ICD10 Worksheet Patient Problems: Problems Problem Status Onset Guillain Boyd syndrome Acute Hyponatremia with decreased serum osmolality Acute Lower respiratory infection Acute
[2017-05-21] MEDS: IMMUNE GLOBULIN 5 GM/50 ML VIAL IV SCH (09:03)
[2017-05-21] MEDS ORDERED: FUROSEMIDE 20 MG/2 ML VIAL IVP ONE (09:36)
[2017-05-21] MEDS ORDERED: LIDOCAINE 1% 300 MG/30 ML SDV MISC ONE (10:29)
[2017-05-21] MEDS ORDERED: LIDOCAINE 2% JELLY 5 ML TUBE TP ONE (10:29)
[2017-05-21] MEDS ORDERED: LIDOCAINE 2% JELLY 5 ML TUBE ONE (10:35)
[2017-05-21] MEDS ORDERED: LIDOCAINE 1% 300 MG/30 ML SDV ONE (10:36)
[2017-05-21] MEDS: IMMUNE GLOBULIN 10 GM/100 ML VIAL IV SCH (10:46)
--- NOTE | 2017-05-21 11:41 | HOSPPROG ---
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 At this point, only able to communicate using eyes. No other spontaneous movements #Hyponatremia: mild, not enough to cause profound weakness. Resolved with fluids #Hypothyroidism: NL TSH #HTN, 190's systolic, Etiology is likely multifactorial -Some improvement after given Propofol today -Cont Lisinopril, may need to be increased -Has 5 kg increase since admission, will give additional diuretic now -stop maintenance IVF. He is on TF which are at goal #Tachycardia: resolved #Hypokalemia -replace per protocol #Diet: NPO #Dysphagia: Tube feeds via PEG -now at goal #diarrhea: hold stool softners -cont with rectal tube #DVT ppx: Lovenox #Disp: cont ICU for critical illness, requires intubation, IVIG total CCT managing this patient who is intubated, has GBS, is on tube feeds, HTN , and cont to have signs of volume overload is 33 minutes. D/w ICU team during rounds. Subjective: elevated BP. + diarrhea, non c-diff. essentially the same neuro ma Objective: Vital Signs Temp Pulse Resp BP Pulse Ox 37.0 C 83 18 140/80 H 99 05/21/17 08:50 05/21/17 10:00 05/21/17 10:00 05/21/17 10:00 05/21/17 10:00 Microbiology 05/18/17 16:45 - Final Sputum, Induced/Suctioned Sputum Culture - Final 05/17/17 17:45 Gram Stain - Final Cerebral Spinal Fluid CSF Culture - Final Laboratory Results 05/20/17 05:25 05/21/17 04:25 05/20/17 05/21/17 05/22/17 05:59 05:59 05:59 Intake Total 3924.5 3890 Output Total 1275 3700 375 Balance 2649.5 190 -375 PT 14.4 SEC (12.0-15.0) 05/17/17 04:50 INR 1.10 (0.83-1.16) 05/17/17 04:50 - Physical Exam Constitutional: no apparent distress Ears, Nose, Mouth, Throat: moist mucous membranes Cardiovascular: regular rate and rhythym, edema, No JVD Respiratory: reduced air movement Skin: warm Neurologic: No AAOx3 Psychiatric: encephalopathic Lymph, Heme, Immunologic: No petechiae ICD10 Worksheet Patient Problems: Problems Problem Status Onset Guillain Boyd syndrome Acute Hyponatremia with decreased serum osmolality Acute Lower respiratory infection Acute
[2017-05-21] MEDS: IMMUNE GLOBULIN 20 GM/200 ML VIAL IV SCH (12:20)
--- NOTE | 2017-05-21 14:00 | GPN ---
[f rep st] PROCEDURE NOTE PROCEDURE: Fiberoptic bronchoscopy. INDICATION: Right lower lobe infiltrate. ANESTHESIA: Patient is currently sedated and on mechanical ventilation. He received 1% lidocaine to pically. DESCRIPTION OF PROCEDURE: The procedure was performed in the intensive care unit. Continuous pulse ox, EKG and blood pressure monitoring. Please note, N95 masks were used by everyone throughout the pr ocedure. However, patient is on mechanical ventilation which is by definition a closed system and po sed no risk for airborne pathogens. Bronchoscope was entered through a #7.5 endotracheal tube. Distal trachea and meryl were visualized and showed copious amounts of thick tenacious secretions that were therapeutically aspirated. Bronc hoscope was placed in the right lung. Right upper lobe was visualized and again shows copious amount s of thick tenacious secretions. These were therapeutically aspirated. Bronchoscope was placed in t he right lower lobe including subsegment visualized and again showed copious amounts of thick tenacio us secretions that were therapeutically aspirated. Bronchoscope was placed in the right middle lobe, right middle lobe was clear. The bronchoscope was placed in the left lung. There was moderate amoun ts of thick tenacious secretions throughout the left upper and left lower lobe. These were therapeut ically aspirated. Bronchoalveolar lavage taken from left lower lobe. This was sent for C&S, AFB, fun gal culture, and cytology. Patient tolerated the procedure well. There were no apparent complicatio ns. /[id number]/MODL
[2017-05-21] MEDS: fentaNYL/NACL 100 ML IV SCH (14:33)
[2017-05-21] MEDS: PROPOFOL/EMULSION 100 ML IV SCH ×2 (14:33→21:15)
--- NOTE | 2017-05-21 14:35 | ASMTCMCOM ---
CM Note CM Note Notes: Patient has acute hypercarbic respiratory failure but is stable on mechanical ventilation. He is tolerating tube feeds but there is no improvement in his neuromuscular weakness. Patient is only able to communicate using his eyes, no other spontaneous movements. D/C plan remains TBD. CM will follow. Date Signed: 05/21/2017 02:34 PM Electronically Signed By:Elizabeth Whitt LCSW
[2017-05-22] MEDS: PETROLAT,WHT/MIN OIL/SOD CHL 3.5 GM OPHT.OINT EACHEYE SCH ×6 (02:23→20:55)
[2017-05-22] MEDS ORDERED: POTASSIUM Cl (KCl) 50 ML IV ONE ×2 (02:24→20:36)
[2017-05-22] MEDS: LEVOTHYROXINE 50 MCG TAB TUBE SCH (06:26)
[2017-05-22] MEDS: PROPOFOL/EMULSION 100 ML IV SCH ×2 (06:36→15:39)
[2017-05-22] MEDS: LISINOPRIL 5 MG TAB TUBE SCH (08:29)
[2017-05-22] MEDS: FAMOTIDINE 20 MG TAB TUBE SCH ×2 (08:29→20:55)
[2017-05-22] MEDS: CHLORHEXIDINE GLUCONATE 15 ML UDL PO SCH ×2 (08:29→20:55)
[2017-05-22] MEDS: ENOXAPARIN 40 MG/0.4 ML SYR SC SCH (08:30)
--- NOTE | 2017-05-22 08:39 | PDINTPN ---
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 No improvement -IV IG per Neurology * Acute hypercarbic respiratory failure-stable on mechanical ventilation. Increased secretions -no change in vent for now -will not consider tracheostomy until dated 12-17 -will perform fiberoptic bronchoscopy today * Sedation-adequate * Nutrition-tolerating tube feeds. Consider PEG tube placement approximate time a tracheostomy * Hypertension-blood pressure currently high -will increase antihypertensive therapy * Left lower lobe infiltrate-cultures are pending * Hypothyroid-TSH okay * VTE prophylaxis * Stress ulcer prophylaxis Subjective: Resting comfortably. No change in neurologic status peer Objective: Vital Signs Temp Pulse Resp BP Pulse Ox 37.7 C 100 18 160/86 H 95 05/22/17 06:00 05/22/17 06:00 05/22/17 06:00 05/22/17 06:00 05/22/17 06:00 Microbiology 05/21/17 11:10 Mycobacterial Smear (VIKKI) - Final Lung Left Lower Lobe - Bronch [place] 05/21/17 11:10 Gram Stain - Final Lung Left Lower Lobe - Bronch [place] Laboratory Results 05/22/17 07:35 05/22/17 04:15 05/21/17 05/22/17 05/23/17 05:59 05:59 05:59 Intake Total 3890 1991 Output Total 3700 3150 Balance 190 -1159 PT 14.4 SEC (12.0-15.0) 05/17/17 04:50 INR 1.10 (0.83-1.16) 05/17/17 04:50 Chest [id number] - Time Spent With Patient Time Spent With Patient: 35 min of critical care time spent with patient. Case discussed with respiratory therapy and nursing Physical Exam - Physical Exam General Appearance: alert, no apparent distress EENT: PERRL/EOMI, normal ENT inspection Neck: non-tender Respiratory: rhonchi (Scattered), No respiratory distress, No stridor, No wheezing Cardiac/Chest: normal peripheral pulses, regular rate, rhythm, systolic murmur Abdomen: normal bowel sounds, non-tender, soft Male Genitalia: deferred Rectal: deferred Skin: normal color, warm/dry Extremities: non-tender Neuro/Psych: No alert ICD10 Worksheet Patient Problems: Problems Problem Status Onset Guillain Boyd syndrome Acute Hyponatremia with decreased serum osmolality Acute Lower respiratory infection Acute
[2017-05-22] MEDS ORDERED: LIDOCAINE 2% JELLY 5 ML TUBE TP ONE (09:02)
[2017-05-22] MEDS ORDERED: LIDOCAINE 1% 300 MG/30 ML SDV MISC ONE (09:02)
[2017-05-22] MEDS: fentaNYL/NACL 100 ML IV SCH ×2 (09:04→20:55)
[2017-05-22] MEDS ORDERED: LIDOCAINE 2% JELLY 5 ML TUBE ONE (09:14)
[2017-05-22] MEDS ORDERED: LIDOCAINE 1% 300 MG/30 ML SDV ONE (09:15)
--- NOTE | 2017-05-22 09:28 | NEUROPROG ---
Assessment: Total unit time today 15 min devoted to management strategies for probable Guillain-[place] syndrome. He has not shown any significant improvements after completing his 5th day of IVIG yesterday, but we will continue to monitor and further decisions will be made about long-term care as more time passes. In general, he has a very poor prognosis because of the severity of his condition but he certainly could still have substantial improvement over many weeks and months. Subjective: No changes reported by the nurse. He is currently on increased sedation prior to some suctioning planning. Objective: Vital Signs Temp Pulse Resp BP Pulse Ox 37.7 C 94 18 135/68 H 96 05/22/17 06:00 05/22/17 08:00 05/22/17 08:00 05/22/17 08:00 05/22/17 08:00 Microbiology 05/21/17 11:10 Gram Stain - Final Lung Left Lower Lobe - Bronch [place] 05/21/17 11:10 Mycobacterial Smear (VIKKI) - Final Lung Left Lower Lobe - Bronch [place] Laboratory Results 05/22/17 07:35 05/22/17 04:15 05/21/17 05/22/17 05/23/17 05:59 05:59 05:59 Intake Total 3890 1990 Output Total 3700 3150 Balance 190 -1159 PT 14.4 SEC (12.0-15.0) 05/17/17 04:50 INR 1.10 (0.83-1.16) 05/17/17 04:50 Allergies/Adverse Reactions: No Known Allergies Allergy (Unverified 05/16/17 08:28)
--- NOTE | 2017-05-22 10:04 | GPN ---
[f rep st] PROCEDURE NOTE PROCEDURE: Fiberoptic bronchoscopy. INDICATION: Mucous plugging. ANESTHESIA: Patient is currently sedated and on mechanical ventilation. He received 1% lidocaine top ically. DESCRIPTION OF PROCEDURE: The procedure was performed in the intensive care unit with continuous pul se ox, EKG and blood pressure monitoring and 95 masks were used throughout the procedure. Please not e, patient is on mechanical ventilation which is, by definition, a closed system and he poses no risk to airborne pathogens. The bronchoscope was entered through a #7.5 endotracheal tube. Distal trachea and meryl were visual ized, and showed copious amounts of thick tenacious secretions that were therapeutically aspirated. Bronchoscope was entered into the left lung. Left upper lobe, and lingula were visualized, showed mi ld amount of secretions, these were therapeutically aspirated. Bronchoscope was entered in the left lower lobe. There were copious amounts of thick tenacious secretions that were therapeutically aspir ated. Bronchoscope was entered in the right lung. Right upper lobe, right middle lobe, right lower lobe including subsegments were visualized and showed copious amounts of thick tenacious secretions. These were therapeutically aspirated. The patient tolerated the procedure well. There were no appa rent complications. /[id number]/MODL
[2017-05-22] MEDS: ACETAMINOPHEN 650 MG/20.3 ML UDCUP TUBE PRN (10:07)
--- NOTE | 2017-05-22 15:05 | HOSPPROG ---
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 At this point, only able to communicate using eyes. No other spontaneous movements. There has not been any significant improvement over the past few days #Pneumonia -Bronchial washings growing G- Coccobacilli -Levaquin started today #Hyponatremia: mild, not enough to cause profound weakness. Resolved with fluids #Hypothyroidism: NL TSH #HTN, significant improvement, BP now in the 120's systolic #Tachycardia: resolved #Hypokalemia -replace per protocol #Diet: NPO #Dysphagia: Tube feeds via PEG -now at goal #diarrhea: hold stool softners -cont with rectal tube #DVT ppx: Lovenox #Disp: cont ICU for critical illness, requires intubation, IVIG total CCT managing this patient who is intubated requiring mechanical ventilation, has GBS, is on tube feeds with HTN is 32 minutes. D/w ICU team during rounds. D/w pt's . Subjective: Still requiring mechancal ventilation. BP is much improved Objective: Vital Signs Temp Pulse Resp BP Pulse Ox 37.6 C 96 18 119/66 97 05/22/17 14:00 05/22/17 14:00 05/22/17 14:00 05/22/17 14:00 05/22/17 14:00 Microbiology 05/21/17 11:10 Gram Stain - Final Lung Left Lower Lobe - Bronch [place] 05/22/17 06:30 - Final Sputum, Induced/Suctioned 05/21/17 11:10 Mycobacterial Smear (VIKKI) - Final Lung Left Lower Lobe - Bronch [place] Laboratory Results 05/22/17 07:35 05/22/17 04:15 05/21/17 05/22/17 05/23/17 05:59 05:59 05:59 Intake Total 3890 1991 Output Total 3700 3150 Balance 190 -1159 PT 14.4 SEC (12.0-15.0) 05/17/17 04:50 INR 1.10 (0.83-1.16) 05/17/17 04:50 - Physical Exam Constitutional: no apparent distress Eyes: PERRL, EOMI Ears, Nose, Mouth, Throat: moist mucous membranes, hearing normal, ears appear normal Cardiovascular: regular rate and rhythym, No edema Respiratory: no respiratory distress Gastrointestinal: normoactive bowel sounds, No tenderness Skin: warm Neurologic: No AAOx3 Psychiatric: other (sedated) Lymph, Heme, Immunologic: No petechiae ICD10 Worksheet Patient Problems: Problems Problem Status Onset Guillain Boyd syndrome Acute Hyponatremia with decreased serum osmolality Acute Lower respiratory infection Acute
[2017-05-23] MEDS: PROPOFOL/EMULSION 100 ML IV SCH ×3 (01:07→17:52)
[2017-05-23 05:19] LABS: PLATELET COUNT 232 10^3/uL (150-400)
[2017-05-23] MEDS: fentaNYL/NACL 100 ML IV SCH ×2 (05:25→14:33)
[2017-05-23] MEDS: LEVOTHYROXINE 50 MCG TAB TUBE SCH (05:26)
[2017-05-23] MEDS: PETROLAT,WHT/MIN OIL/SOD CHL 3.5 GM OPHT.OINT EACHEYE SCH ×6 (05:26→21:21)
[2017-05-23] MEDS ORDERED: POTASSIUM Cl (KCl) 50 ML IV ONE (07:48)
[2017-05-23] MEDS ORDERED: POTASSIUM CL 20 MEQ/15 ML UDCUP TUBE ONE (08:00)
[2017-05-23] MEDS: ENOXAPARIN 40 MG/0.4 ML SYR SC SCH (08:04)
[2017-05-23] MEDS: LISINOPRIL 5 MG TAB TUBE SCH (08:08)
[2017-05-23] MEDS: FAMOTIDINE 20 MG TAB TUBE SCH ×2 (08:09→21:15)
[2017-05-23] MEDS: CHLORHEXIDINE GLUCONATE 15 ML UDL PO SCH ×2 (08:14→21:15)
[2017-05-23] MEDS ORDERED: LIDOCAINE 1% 300 MG/30 ML SDV MISC ONE (08:22)
[2017-05-23] MEDS ORDERED: LIDOCAINE 2% JELLY 5 ML TUBE TP ONE (08:22)
--- NOTE | 2017-05-23 09:11 | PDINTPN ---
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 No improvement -IV IG per Neurology * Acute hypercarbic respiratory failure-stable on mechanical ventilation. Increased secretions and chest x-ray suggesting right lower lobe atelectasis -no change in vent for now -will not consider tracheostomy until dated 12-17 -will perform fiberoptic bronchoscopy today * Sedation-adequate * Nutrition-tolerating tube feeds. Consider PEG tube placement approximate time a tracheostomy * Hypertension-blood pressure currently high -will increase antihypertensive therapy * Left lower lobe infiltrate-cultures growing Haemophilus. Sensitivities pending. -continue Levaquin. * Hypothyroid-TSH okay * VTE prophylaxis * Stress ulcer prophylaxis * Prognosis-guarded Subjective: Poorly responsive Objective: Vital Signs Temp Pulse Resp BP Pulse Ox 38.1 C 94 18 112/67 95 05/23/17 04:00 05/23/17 06:00 05/23/17 06:00 05/23/17 06:00 05/23/17 06:00 Microbiology 05/22/17 06:30 - Final Sputum, Induced/Suctioned 05/21/17 11:10 Gram Stain - Final Lung Left Lower Lobe - Bronch [place] Laboratory Results 05/23/17 05:00 05/23/17 05:00 05/22/17 05/23/17 05/24/17 05:59 05:59 05:59 Intake Total 1990 2712 Output Total 3150 1410 Balance -1159 1303 PT 14.4 SEC (12.0-15.0) 05/17/17 04:50 INR 1.10 (0.83-1.16) 05/17/17 04:50 Laboratory Results 05/23/17 05:00 05/23/17 05:00 05/23/17 05/22/17 05:20 04:15 Patient Temperature 38.1 DEGREES DEGREES pCO2 43 mmHg H mmHg (34 - 38) pO2 71 mmHg mmHg (65 - 75) Total CO2 31 mEq/L H mEq/L (23 - 27) ABG pH 7.46 H (7.35 - 7.45) ABG PO2/FiO2 Ratio 158 RATIO RATIO ABG HCO3 30 mEq/L H mEq/L (22 - 26) ABG O2 Saturation 94 % % (92 - 95) ABG Base Excess 6.3 mEq/L H mEq/L (-2.5 - 2.5) O2 Concentration % 45 % % Respiration Rate 18 Set Respiration Rate 18 Assist Control YES Tidal Volume 550 End Tidal CO2 47 PEEP 5 Calcium 8.1 mg/dL L mg/dL (8.5 - 10.4) 05/22/17 06:30 - Pending Sputum, Induced/Suctioned Sputum Culture - Pending 05/21/17 11:10 Mycobacterial Smear (VIKKI) - Final Lung Left Lower Lobe - Bronch [place] Mycobacterial Culture - Pending 05/21/17 11:10 Gram Stain - Final Lung Left Lower Lobe - Bronch [place] Bronchial Washings Culture - Preliminary Haemophilus Species 05/21/17 11:10 Gram Stain - Final Lung Left Lower Lobe - Bronch [place] Bronchial Washings Culture - Pending 05/21/17 11:10 Fungal Culture - Pending Lung Left Lower Lobe - Bronch [place] Chest [id number] by myself. Endotracheal tube in good position. Right lower lobe atelectasis is present. Physical Exam - Physical Exam General Appearance: no apparent distress EENT: PERRL/EOMI, ET tube Neck: non-tender Respiratory: crackles (Right base), No respiratory distress, No wheezing Cardiac/Chest: normal peripheral pulses, regular rate, rhythm Peripheral Pulses: 2+: carotid (R), carotid (L), femoral (R), femoral (L), dorsalis-pedis (R), dorsalis-pedis (L) Abdomen: normal bowel sounds, non-tender, soft Male Genitalia: deferred Rectal: deferred Skin: normal color, warm/dry Extremities: non-tender Neuro/Psych: No alert ICD10 Worksheet Patient Problems: Problems Problem Status Onset Guillain Boyd syndrome Acute Hyponatremia with decreased serum osmolality Acute Lower respiratory infection Acute
--- NOTE | 2017-05-23 09:52 | GPN ---
[f rep st] PROCEDURE NOTE PROCEDURE PERFORMED: Fiberoptic bronchoscopy. INDICATION: Mucous plugging. ANESTHESIA: He is currently sedated and on mechanical ventilation. He also received 1% lidocaine to pically. DESCRIPTION OF PROCEDURE: The procedure was performed in the intensive care unit with continuous pul se ox, EKG, and blood pressure monitoring. Please note N95 masks were used throughout the procedure. The patient is on mechanical ventilation which is by definition a closed system and posed no risk t o airborne pathogens. Bronchoscope was entered through a #7.5 endotracheal tube. The distal trachea and meryl were visual ized, showed no endobronchial lesion, normal-appearing mucosa. Bronchoscope was in the left lung. L eft upper lobe, lingula were visualized, showed no endobronchial lesion, normal-appearing mucosa. Th ere was minimal amounts of mucous plugging in the left lower lobe. These were therapeutically aspira chance. Bronchoscope was in the right lung. Right lung showed copious amounts of thick tenacious secre tions throughout the right upper lobe, right lower lobe including superior segment, and right middle lobe. These were therapeutically aspirated. The patient tolerated the procedure well. There were n o apparent complications. Portable chest x-ray has been called for. /[id number]/MODL
--- NOTE | 2017-05-23 10:15 | NEUROPROG ---
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 He has not shown any significant improvements after completing his 5th day of IVIG yesterday, but we will continue to monitor and further decisions will be made about long-term care as more time passes. In general, he has a very poor prognosis because of the severity of his condition but he certainly could still have substantial improvement over many weeks and months. 05/23/17: total unit time of 15 minutes. 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 Dr. Salazar to follow up tomorrow and meet family for any ongoing questions that may arise, but his daughter seems to understand the anticipated course. Subjective: No change, just got sedation for a bronchoscopy Objective: Vital Signs Temp Pulse Resp BP Pulse Ox 38.2 C 96 18 141/81 H 96 05/23/17 10:00 05/23/17 10:00 05/23/17 10:00 05/23/17 10:00 05/23/17 10:00 Microbiology 05/22/17 06:30 - Final Sputum, Induced/Suctioned 05/21/17 11:10 Gram Stain - Final Lung Left Lower Lobe - Bronch [place] Laboratory Results 05/23/17 05:00 05/23/17 05:00 05/22/17 05/23/17 05/24/17 05:59 05:59 05:59 Intake Total 19903 Output Total 3150 1410 480 Balance -1159 1303 -480 PT 14.4 SEC (12.0-15.0) 05/17/17 04:50 INR 1.10 (0.83-1.16) 05/17/17 04:50 Not reexamined this am but not reported changes in the facial movements other than maybe being a little slower per daughter. No movement in extremities. Allergies/Adverse Reactions: No Known Allergies Allergy (Unverified 05/16/17 08:28)
[2017-05-23] MEDS ORDERED: IPRATROPIUM/ALBUTEROL 3 ML DEYVIAL ONE (11:53)
[2017-05-23] MEDS: ACETYLCYSTEINE 10% IH/PO 4 ML VIAL IH SCH ×2 (11:56→17:02)
--- NOTE | 2017-05-23 17:11 | HOSPPROG ---
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 At this point, only able to communicate using eyes. No other spontaneous movements. There has not been any significant improvement. #Pneumonia, right sided -Bronchial washings growing G- Coccobacilli, Haemophilus -Levaquin day 2 #Hyponatremia: mild, not enough to cause profound weakness. Resolved with fluids #Hypothyroidism: NL TSH #HTN, significant improvement, BP now in the 120's systolic #Tachycardia: resolved #Hypokalemia -replace per protocol #Diet: NPO #Dysphagia: Tube feeds via PEG -now at goal #diarrhea: hold stool softners -cont with rectal tube #DVT ppx: Lovenox #Disp: cont ICU for critical illness, requires intubation, IVIG Plan: -Mechanical ventilation per pulm -s/p bronchoscopy today -Diurese PRN, not indicated today -Cont with BP support, adequately controlled -Optimize nutrition, cont tube feeds -cont abx total CCT managing this patient who is intubated requiring mechanical ventilation, has GBS, is on tube feeds with HTN and pneumonia is 33 minutes. D/ w ICU team during rounds. D/w pt's daughter Subjective: no overnight events. Got bronched this morning. on vent Objective: Vital Signs Temp Pulse Resp BP Pulse Ox 37.5 C 95 18 152/78 H 93 05/23/17 16:00 05/23/17 16:00 05/23/17 16:00 05/23/17 16:00 05/23/17 16:00 Microbiology 05/22/17 06:30 - Final Sputum, Induced/Suctioned 05/21/17 11:10 Gram Stain - Final Lung Left Lower Lobe - Bronch [place] Bronchial Washings Culture - Final Haemophilus Influenzae Laboratory Results 05/23/17 05:00 05/23/17 11:35 05/22/17 05/23/17 05/24/17 05:59 05:59 05:59 Intake Total 19903 70 Output Total 3150 1410 880 Balance -1159 1303 -810 PT 14.4 SEC (12.0-15.0) 05/17/17 04:50 INR 1.10 (0.83-1.16) 05/17/17 04:50 - Physical Exam Constitutional: no apparent distress Eyes: PERRL Ears, Nose, Mouth, Throat: moist mucous membranes Cardiovascular: regular rate and rhythym, No JVD, No edema Respiratory: reduced air movement Gastrointestinal: soft, non-tender abdomen, No ascites, No distension Skin: warm Neurologic: No AAOx3 Psychiatric: No interacting appropriately ICD10 Worksheet Patient Problems: Problems Problem Status Onset Guillain Boyd syndrome Acute Hyponatremia with decreased serum osmolality Acute Lower respiratory infection Acute
[2017-05-23] MEDS: POTASSIUM Cl (KCl) 10 MEQ in NS 100 ML IV SCH ×2 (20:03→21:53)
[2017-05-23] MEDS: OSELTAMIVIR 6 MG/ML UDSYR TUBE SCH (21:54)
[2017-05-24] MEDS: ACETYLCYSTEINE 10% IH/PO 4 ML VIAL IH SCH ×5 (00:05→23:43)
[2017-05-24] MEDS: PROPOFOL/EMULSION 100 ML IV SCH ×2 (03:00→13:16)
[2017-05-24 04:39] LABS: PLATELET COUNT 246 10^3/uL (150-400)
[2017-05-24] MEDS: PETROLAT,WHT/MIN OIL/SOD CHL 3.5 GM OPHT.OINT EACHEYE SCH ×6 (05:12→20:41)
[2017-05-24] MEDS: LEVOTHYROXINE 50 MCG TAB TUBE SCH (05:18)
[2017-05-24] MEDS: CHLORHEXIDINE GLUCONATE 15 ML UDL PO SCH ×2 (09:00→20:41)
[2017-05-24] MEDS: ENOXAPARIN 40 MG/0.4 ML SYR SC SCH (09:21)
[2017-05-24] MEDS: FAMOTIDINE 20 MG TAB TUBE SCH ×2 (09:21→20:41)
[2017-05-24] MEDS: LISINOPRIL 5 MG TAB TUBE SCH (09:21)
[2017-05-24] MEDS: OSELTAMIVIR 6 MG/ML UDSYR TUBE SCH (09:21)
--- NOTE | 2017-05-24 10:22 | NEUROPROG ---
Assessment: 1. 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 Overall, the patient's clinical history and CSF exam is consistent with Guillain -[place] syndrome. Although he has significant and severe arthritic changes in his spine with spinal stenosis, that would not cause such an acute ascending paralysis syndrome. He has received 5 doses of IVIG Clinically, he is essentially locked in at this point. I had a long discussion with his daughter, Tomasa, regarding the overall prognosis in severity of his condition. He will be having a PEG tube and trach placed a little later this week. He will then likely be discharged to a long- term ventilatory facility. I counseled her that recovery with this degree of severity of Guillain-[place], which likely includes axonal involvement, can take months and recovery is typically not complete. She understands and appreciated the counseling. No further recommendations now. We will continue to follow this patient as needed. Please do not hesitate to call with any questions or changes in neurologic status with this patient. Subjective: No new symptoms Objective: Vital Signs Temp Pulse Resp BP Pulse Ox 37.7 C 96 18 147/85 H 95 05/24/17 08:00 05/24/17 08:00 05/24/17 08:00 05/24/17 08:00 05/24/17 08:00 Microbiology 05/22/17 06:30 - Final Sputum, Induced/Suctioned 05/21/17 11:10 Gram Stain - Final Lung Left Lower Lobe - Bronch [place] Bronchial Washings Culture - Final Haemophilus Influenzae Laboratory Results 05/24/17 04:30 05/24/17 04:30 05/23/17 05/24/17 05/25/17 05:59 05:59 05:59 Intake Total 2713 2789 132.3 Output Total 1410 1780 530 Balance 1303 1009 -397.7 PT 14.4 SEC (12.0-15.0) 05/17/17 04:50 INR 1.10 (0.83-1.16) 05/17/17 04:50 Areflexic No spontaneous movement in his limbs Allergies/Adverse Reactions: No Known Allergies Allergy (Unverified 05/16/17 08:28)
--- NOTE | 2017-05-24 11:26 | HOSPPROG ---
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 flu - cont levaquin # htn - cont home lisino, start labetalol # cervical and lumbar spinal stenosis # persistent leukocytosis - recheck tomorrow # hypoNa - resolved # hypothyroid - synthroid # FEN - TF at goal # dvt ppx - lovenox Subjective: no significant change overnight Objective: Vital Signs Temp Pulse Resp BP Pulse Ox 37.7 C 99 18 173/86 H 97 05/24/17 08:00 05/24/17 10:00 05/24/17 10:00 05/24/17 10:00 05/24/17 10:00 Microbiology 05/22/17 06:30 - Final Sputum, Induced/Suctioned Sputum Culture - Final 05/21/17 11:10 Gram Stain - Final Lung Left Lower Lobe - Bronch [place] Bronchial Washings Culture - Final Haemophilus Influenzae Laboratory Results 05/24/17 04:30 05/24/17 04:30 05/23/17 05/24/17 05/25/17 05:59 05:59 05:59 Intake Total 2713 2789 132.3 Output Total 1410 1780 530 Balance 1303 1009 -397.7 PT 14.4 SEC (12.0-15.0) 05/17/17 04:50 INR 1.10 (0.83-1.16) 05/17/17 04:50 imaging reviewed discussed on ICU rounds with Dr Vasquez; also discussed with Dr Salazar - Physical Exam Constitutional: uncomfortable (moves his eyebrow to communicate) Ears, Nose, Mouth, Throat: other (ETT; OGT) Cardiovascular: regular rate and rhythym, no murmur, rub, or gallop Respiratory: no rales or rhonchi, clear to auscultation Gastrointestinal: soft, non-tender abdomen, no palpable masses Genitourinary: mccann in urethra ICD10 Worksheet Patient Problems: Problems Problem Status Onset Guillain Boyd syndrome Acute Hyponatremia with decreased serum osmolality Acute Lower respiratory infection Acute
[2017-05-24] MEDS ORDERED: LABETALOL HCL 100 MG TAB PO SCH (11:30)
[2017-05-24] MEDS: ALBUTEROL 3 ML DEYVIAL IH SCH ×3 (11:59→23:44)
[2017-05-24] MEDS ORDERED: POTASSIUM CL 10 MEQ TAB PO ONE (12:51)
[2017-05-24] MEDS ORDERED: POTASSIUM CL 20 MEQ/15 ML UDCUP TUBE ONE (13:00)
--- NOTE | 2017-05-24 14:35 | PDINTPN ---
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 Work-up most consistent with Guiallan [place] and started IVIG, but little to no improvement since. He has required frequent bronchoscopies for excess secretions and has been treated for PNA. Vent settings have been minimal. * Acute respiratory failure 2/2 GB. He is relatively stable from this perspective, though should have daily wake up trials. DC'd fentanyl today. CXR shows area of linear atelectasis in RLL/RML, but no excess secretions reported so no additional bronch at this time. He will need a trach tues or wed with PEG as expected time on vent is prolonged. Today is vent day#8 * GB- poor prognosis discussed with neurology * HTN- started labetolol today as well as lisinopril * * * critical care time 35 minutes Subjective: no events. s/p bronch 05/23 Objective: Vital Signs Temp Pulse Resp BP Pulse Ox 37.4 C 89 18 149/74 H 98 05/24/17 12:00 05/24/17 14:00 05/24/17 14:00 05/24/17 14:00 05/24/17 14:00 Microbiology 05/22/17 06:30 - Final Sputum, Induced/Suctioned Sputum Culture - Final 05/21/17 11:10 Gram Stain - Final Lung Left Lower Lobe - Bronch [place] Bronchial Washings Culture - Final Haemophilus Influenzae Laboratory Results 05/24/17 04:30 05/24/17 11:44 05/23/17 05/24/17 05/25/17 05:59 05:59 05:59 Intake Total 2713 2789 132.3 Output Total 1410 1780 1005 Balance 1303 1009 -872.7 PT 14.4 SEC (12.0-15.0) 05/17/17 04:50 INR 1.10 (0.83-1.16) 05/17/17 04:50 Physical Exam - Physical Exam General Appearance: no apparent distress, obtunded EENT: PERRL/EOMI, ET tube Neck: supple Respiratory: lungs clear, normal breath sounds, No respiratory distress, No accessory muscle use Cardiac/Chest: regular rate, rhythm, No edema Abdomen: non-tender, soft, No distended Skin: normal color, warm/dry, No cyanosis Lymphatic: no adenopathy Extremities: No pedal edema Neuro/Psych: cognition abnormalities ICD10 Worksheet Patient Problems: Problems Problem Status Onset Guillain Boyd syndrome Acute Hyponatremia with decreased serum osmolality Acute Lower respiratory infection Acute
--- NOTE | 2017-05-24 17:07 | ASMTCMCOM ---
CM Note CM Note Notes: Patient severely movement compromised. He is to be Trached and PEG tube placed this week. Patient will need LTAC placement. Daughter, Tomasa, declined "Family Meeting" today-she is interested in meeting later this week. Date Signed: 05/24/2017 05:06 PM Electronically Signed By:Karuna Fritz LCSW
[2017-05-24] MEDS: ACETAMINOPHEN 650 MG/20.3 ML UDCUP TUBE PRN (19:50)
[2017-05-24] MEDS: LABETALOL HCL 100 MG TAB TUBE SCH (20:41)
[2017-05-25] MEDS: PROPOFOL/EMULSION 100 ML IV SCH ×2 (01:08→16:07)
[2017-05-25] MEDS: PETROLAT,WHT/MIN OIL/SOD CHL 3.5 GM OPHT.OINT EACHEYE SCH ×6 (04:29→20:15)
[2017-05-25] MEDS: ACETYLCYSTEINE 10% IH/PO 4 ML VIAL IH SCH (04:35)
[2017-05-25] MEDS: ALBUTEROL 3 ML DEYVIAL IH SCH (04:36)
[2017-05-25 04:40] LABS: PLATELET COUNT 305 10^3/uL (150-400)
[2017-05-25] MEDS ORDERED: POTASSIUM Cl (KCl) 100 ML IV SCH (05:19)
[2017-05-25] MEDS ORDERED: PROTOCOL POTASSIUM 1 DOSE MISC PRN (05:21)
[2017-05-25] MEDS: LEVOTHYROXINE 50 MCG TAB TUBE SCH (05:28)
[2017-05-25] MEDS ORDERED: POTASSIUM CL 20 MEQ/15 ML UDCUP TUBE ONE ×2 (06:00→15:15)
[2017-05-25] MEDS: LABETALOL HCL 100 MG TAB TUBE SCH ×3 (08:05→20:14)
[2017-05-25] MEDS: ENOXAPARIN 40 MG/0.4 ML SYR SC SCH (08:05)
[2017-05-25] MEDS: FAMOTIDINE 20 MG TAB TUBE SCH ×2 (08:05→20:14)
[2017-05-25] MEDS: LISINOPRIL 5 MG TAB TUBE SCH (08:05)
[2017-05-25] MEDS: CHLORHEXIDINE GLUCONATE 15 ML UDL PO SCH ×2 (08:05→20:15)
--- NOTE | 2017-05-25 08:21 | HOSPPROG ---
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 flu - cont levaquin # htn - cont home lisino, incr labetalol # cervical and lumbar spinal stenosis # persistent leukocytosis - down today # hypoNa - resolved # hypothyroid - TSH ok; synthroid # FEN - TF at goal # dvt ppx - lovenox Subjective: no significant change; lifted eyebrows to voice; ongoing liquid stool Objective: Vital Signs Temp Pulse Resp BP Pulse Ox 37.4 C 95 18 171/88 H 97 05/25/17 06:00 05/25/17 08:05 05/25/17 06:00 05/25/17 08:05 05/25/17 06:00 Microbiology 05/22/17 06:30 - Final Sputum, Induced/Suctioned Sputum Culture - Final Laboratory Results 05/25/17 04:15 05/25/17 04:15 05/24/17 05/25/17 05/26/17 05:59 05:59 05:59 Intake Total 2789 2506.2 Output Total 1780 2210 Balance 1009 296.2 PT 14.4 SEC (12.0-15.0) 05/17/17 04:50 INR 1.10 (0.83-1.16) 05/17/17 04:50 high risk - Physical Exam Constitutional: other (not moving) Cardiovascular: regular rate and rhythym, no murmur, rub, or gallop Respiratory: no rales or rhonchi, clear to auscultation Gastrointestinal: normoactive bowel sounds, soft, non-tender abdomen ICD10 Worksheet Patient Problems: Problems Problem Status Onset Guillain Boyd syndrome Acute Hyponatremia with decreased serum osmolality Acute Lower respiratory infection Acute
[2017-05-25] MEDS ORDERED: LABETALOL HCL 100 MG TAB TUBE ONE (09:30)
[2017-05-25] MEDS ORDERED: POTASSIUM Cl (KCl) 50 ML IV ONE (14:01)
--- NOTE | 2017-05-25 14:33 | PDINTPN ---
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 Work-up most consistent with Guiallan [place] and started IVIG, but little to no improvement since. He has required frequent bronchoscopies for excess secretions and has been treated for PNA. Vent settings have been minimal. * Acute respiratory failure 2/2 GB. He is relatively stable from this perspective. Continue with attempts at weaning. trach in AM. Today is vent day# 9 * GB- poor prognosis discussed with neurology * HTN- started labetolol today as well as lisinopril * * * critical care time 35 minutes 05/25/17 14:31 Subjective: no events Objective: Vital Signs Temp Pulse Resp BP Pulse Ox 37.8 C 95 18 108/57 L 97 05/25/17 12:00 05/25/17 12:00 05/25/17 12:00 05/25/17 12:00 05/25/17 12:00 Microbiology 05/21/17 11:10 Mycobacterial Smear (VIKKI) - Final Lung Left Lower Lobe - Bronch [place] 05/25/17 10:30 Gastrointestinal Tract Panel (PCR) - Final Stool No Organism Detected 05/22/17 06:30 - Final Sputum, Induced/Suctioned Sputum Culture - Final Laboratory Results 05/25/17 04:15 05/25/17 13:15 05/24/17 05/25/17 05/26/17 05:59 05:59 05:59 Intake Total 2789 2506.2 Output Total 1780 2210 450 Balance 1009 296.2 -450 PT 14.4 SEC (12.0-15.0) 05/17/17 04:50 INR 1.10 (0.83-1.16) 05/17/17 04:50 Physical Exam - Physical Exam General Appearance: obtunded, other (lifts eyelid) EENT: PERRL/EOMI Neck: supple Respiratory: lungs clear, normal breath sounds, decreased breath sounds, No respiratory distress, No accessory muscle use Cardiac/Chest: regular rate, rhythm, No edema Abdomen: non-tender, soft, No distended Skin: normal color, warm/dry, No cyanosis Lymphatic: no adenopathy Extremities: pedal edema Neuro/Psych: motor weakness, cognition abnormalities ICD10 Worksheet Patient Problems: Problems Problem Status Onset Guillain Boyd syndrome Acute Hyponatremia with decreased serum osmolality Acute Lower respiratory infection Acute
--- NOTE | 2017-05-25 15:52 | ASMTCMCOM ---
CM Note CM Note Notes: Spoke to daughterTomasa about the need for a Skilled Nursing Acute Hospital for patient. A list of LTAC's left with RN for daughter to check. Tomasa lives in [place] so we talked about [facility] being the closest to her. A referral sent to [facility] and this CM did talk to their Admissions, Karlee. Date Signed: 05/25/2017 03:51 PM Electronically Signed By:Karuna Fritz LCSW
[2017-05-25] MEDS: hydrALAZINE 20 MG/ML VIAL IVP PRN (16:08)
[2017-05-25] MEDS: LOPERAMIDE HCL 2 MG CAP PO PRN (16:08)
[2017-05-26] MEDS ORDERED: POTASSIUM Cl (KCl) 50 ML IV ONE ×2 (01:03→13:55)
[2017-05-26] MEDS: PROPOFOL/EMULSION 100 ML IV SCH ×2 (04:09→14:27)
[2017-05-26] MEDS: PETROLAT,WHT/MIN OIL/SOD CHL 3.5 GM OPHT.OINT EACHEYE SCH ×6 (04:09→21:11)
[2017-05-26] MEDS: LEVOTHYROXINE 50 MCG TAB TUBE SCH (04:10)
[2017-05-26 06:23] LABS: PLATELET COUNT 332 10^3/uL (150-400)
[2017-05-26] MEDS: ENOXAPARIN 40 MG/0.4 ML SYR SC SCH (06:58)
[2017-05-26] MEDS ORDERED: fentaNYL 100 MCG/2 ML INJ ONE ×2 (07:08→15:10)
[2017-05-26] MEDS ORDERED: LIDOCAINE 1% 300 MG/30 ML SDV ONE ×2 (07:09→08:01)
[2017-05-26] MEDS ORDERED: VECURONIUM BROMIDE 10 MG VIAL ONE (07:14)
[2017-05-26] MEDS ORDERED: LIDOCAINE 2% JELLY 5 ML TUBE ONE (08:01)
[2017-05-26] MEDS ORDERED: BENZOCAINE UNIT DOSE SPRAY HURRICAINE MM ONE (08:01)
--- NOTE | 2017-05-26 08:41 | GPN ---
[f rep st] PROCEDURE NOTE DATE OF PROCEDURE: 05/26/2017 PROCEDURE: Percutaneous tracheostomy. INDICATION: Respiratory failure and ventilator dependence in the setting of Guillain-[place] syndrome. CONSENT: Informed consent was obtained from the patient's daughter prior to the administration of an esthesia. The risks and benefits of both anesthesia and the procedure itself were explained in detai l and she agreed to proceed. SEDATION: Conscious sedation was achieved using an existing propofol drip as well as a total of 200 mcg of IV fentanyl, 10 mg of IV vecuronium. The patient tolerated these well without complications. DESCRIPTION OF PROCEDURE: The patient was prepped and draped in sterile fashion. The cricoid cartil age was easily palpated and identified as well as the 1st and 2nd tracheal rings. The surface was in stilled with subcutaneous lidocaine and a 2 cm cranial to caudal incision was made in the superficial skin. Blunt dissection was used to expose down to the trachea, itself. A finder needle was used un [place] bronchoscopic guidance provided by Dr. Candelaria to show adequate positioning. Subsequently, a need le-guided wire was placed within the trachea, followed by successive dilation and finally placement o f the tracheostomy without difficulty and a subsequent bronchoscopic visualization showed excellent p lacement with no bleeding complications. There were, however, significant mucus plugs within the air ways which Dr. Candelaria was working on. The patient tolerated the procedure well. A chest x-ray is pe patric. /[id number]/MODL
[2017-05-26] MEDS ORDERED: VECURONIUM BROMIDE 10 MG VIAL IV ONE (08:45)
[2017-05-26] MEDS ORDERED: fentaNYL 100 MCG/2 ML INJ IV ONE ×2 (08:45→16:45)
[2017-05-26] MEDS: CHLORHEXIDINE GLUCONATE 15 ML UDL PO SCH ×2 (08:48→21:12)
--- NOTE | 2017-05-26 08:51 | GPN ---
[f rep st] PROCEDURE NOTE PROCEDURE: Fiberoptic bronchoscopy. INDICATION: Mucus plugging and providing visualization for percutaneous tracheostomy. The procedure was performed in the intensive care unit with continuous pulse ox, EKG, and blood press ure monitoring. N95 masks were used throughout the procedure. Please note, the patient is on mechan ical ventilation, which is by definition a closed system and poses no risk to airborne pathogens. DESCRIPTION OF PROCEDURE: Bronchoscope was entered through a #7.5 endotracheal tube. Copious amount s of secretions were seen in the distal trachea. These were therapeutically aspirated. Visualizatio n was then provided for percutaneous tracheostomy performed by Dr. Armin Vasquez. After tracheostomy tube was placed, bronchoscopy continued through tracheostomy tube. Bronchoscope was in the right jony ng. Right upper lobe, right middle, right lower lobe including subsegments were subsequently visuali zed and showed copious amounts of thick tenacious secretions that were therapeutically aspirated. Br onchoscope was in the left lung. Left upper lobe, lingula, left lower lobe including subsegments wer e subsequently visualized and again showed significant amount of mucus plugging and thick tenacious s ecretions that were therapeutically aspirated. Bronchoscope was then removed. The patient tolerated the procedure well. There were no apparent complications. Portable chest x-ray has been called for . /[id number]/MODL
[2017-05-26] MEDS ORDERED: POTASSIUM CL 10 MEQ TAB PO ONE (09:45)
[2017-05-26] MEDS: LABETALOL HCL 100 MG TAB TUBE SCH ×2 (09:52→21:11)
[2017-05-26] MEDS: FAMOTIDINE 20 MG TAB TUBE SCH ×2 (09:52→21:11)
[2017-05-26] MEDS: LISINOPRIL 5 MG TAB TUBE SCH (09:52)
--- NOTE | 2017-05-26 12:12 | ASMTCMCOM ---
CM Note CM Note Notes: Spoke with patient's daughter, Tomasa who says they have not made up their mind about facility for patient yet. Mela, patient's partner will return tomorrow and they are going to talk over their preferences and decide then. Tomasa requested a general letter she can use to help take care of her father's personal affairs. This was prepared and given to Tomasa. CM will follow. Date Signed: 05/26/2017 12:12 PM Electronically Signed By:Elizabeth Whitt LCSW
--- NOTE | 2017-05-26 12:38 | HOSPPROG ---
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 flu - cont levaquin D#07/12 # htn - cont home lisino, cont labetalol (started here) # cervical and lumbar spinal stenosis # persistent leukocytosis - down today # hypoNa - resolved # hypothyroid - TSH ok; synthroid # FEN - TF at goal # dvt ppx - lovenox Subjective: still liquid stool; note signed for Mr Andino attesting to his critical illness Objective: Vital Signs Temp Pulse Resp BP Pulse Ox 37.5 C 90 18 149/75 H 95 05/26/17 08:30 05/26/17 10:00 05/26/17 10:00 05/26/17 10:00 05/26/17 10:00 Microbiology 05/21/17 11:10 Mycobacterial Smear (VIKKI) - Final Lung Left Lower Lobe - Bronch [place] 05/25/17 10:30 Gastrointestinal Tract Panel (PCR) - Final Stool No Organism Detected Laboratory Results 05/26/17 06:15 05/26/17 06:15 05/25/17 05/26/17 05/27/17 05:59 05:59 05:59 Intake Total 2506.2 2199.4 Output Total 2210 2300 325 Balance 296.2 -100.6 -325 PT 14.4 SEC (12.0-15.0) 05/17/17 04:50 INR 1.10 (0.83-1.16) 05/17/17 04:50 - Time Spent With Patient Time Spent with Patient: greater than 25 minutes Time Spent with Patient: Greater than 25 minutes spent on this patients care, greater than 50% of time spent counseling, educating, and coordinating care regarding the above mentioned plan. - Physical Exam Constitutional: other (not moving) ICD10 Worksheet Patient Problems: Problems Problem Status Onset Guillain Boyd syndrome Acute Hyponatremia with decreased serum osmolality Acute Lower respiratory infection Acute
--- NOTE | 2017-05-26 13:20 | PDINTPN ---
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 Work-up most consistent with Guiallan [place] and started IVIG, but little to no improvement since. He has required frequent bronchoscopies for excess secretions and has been treated for PNA. Vent settings have been minimal. * Acute respiratory failure 2/2 GB. He is relatively stable from this perspective. Today is vent day#10. No complications from trach, though bronch did show copious secretions so will likely need repeat in am. I suspect his lack of diaphragmatic movement is contributing to poor clearance. * GB- poor prognosis discussed with neurology. Will get PEG later today/ tomorrow and likely transfer to LTACH. Discussed with daughter in detail. Minimize sedation as much as possible * HTN- stable * * * critical care time 35 minutes separate from procedures 05/26/17 13:20 Subjective: stable overnight, now s/p trach Objective: Vital Signs Temp Pulse Resp BP Pulse Ox 37.7 C 88 18 139/72 H 91 L 05/26/17 12:00 05/26/17 12:00 05/26/17 12:00 05/26/17 12:00 05/26/17 12:00 Microbiology 05/21/17 11:10 Mycobacterial Smear (VIKKI) - Final Lung Left Lower Lobe - Bronch [place] 05/25/17 10:30 Gastrointestinal Tract Panel (PCR) - Final Stool No Organism Detected Laboratory Results 05/26/17 06:15 05/26/17 12:55 05/25/17 05/26/17 05/27/17 05:59 05:59 05:59 Intake Total 2506.2 2199.4 Output Total 2210 2300 575 Balance 296.2 -100.6 -575 PT 14.4 SEC (12.0-15.0) 05/17/17 04:50 INR 1.10 (0.83-1.16) 05/17/17 04:50 Physical Exam - Physical Exam General Appearance: obtunded EENT: PERRL/EOMI Neck: supple Respiratory: lungs clear, normal breath sounds, decreased breath sounds, No respiratory distress, No accessory muscle use Cardiac/Chest: regular rate, rhythm, No edema Abdomen: non-tender, soft, No distended Skin: normal color, warm/dry, No cyanosis Lymphatic: no adenopathy Extremities: No pedal edema Neuro/Psych: motor weakness, cognition abnormalities, other (lifts eyelid to voice) ICD10 Worksheet Patient Problems: Problems Problem Status Onset Guillain Boyd syndrome Acute Hyponatremia with decreased serum osmolality Acute Lower respiratory infection Acute
--- NOTE | 2017-05-26 16:15 | GIREPORT ---
[facility] - Endoscopy Department Patient Name: Darcie Andino Procedure Date: 05/26/2017 3:18 PM Patient Type: Inpatient Attending MD/ ER Physician: Teresita Briones MD Procedure: Upper GI endoscopy Indications: Place PEG because patient is unable to eat Providers: Teresita Briones MD Medicines: Fentanyl 100 micrograms IV Complications: No immediate complications. Description of Procedure: After obtaining informed consent, the endoscope was passed under direct vision. Throughout the procedure, the patient's blood pressure, pulse, and oxygen saturations were monitored continuously. The Endoscope was intro duced through the mouth, and advanced to the second part of duodenum. The [facility] er GI endoscopy was accomplished without difficulty. The patient tolerated th e procedure well. Findings: The examined esophagus was normal. Diffuse mild inflammation characterized by congestion (edema) was found in the entire examined stomach. The patient was placed in the supine posit ion for PEG placement. The stomach was insufflated to appose gastric and abdominal ramehs. A site was located in the fundus with excellent transillumination and manual external pressure for placement. The abdom inal wall was marked and prepped in a sterile manner. The area was anestheti zed with 4 mL of 1% lidocaine. The trocar needle was introduced through the abdominal wall and into the stomach under direct endoscopic view. A sna re was introduced through the endoscope and opened in the gastric lumen. T he guide wire was passed through the trocar and into the open snare. The s nare was closed around the guide wire. The endoscope and snare were removed, pulling the wire out through the mouth. A skin incision was made at the site of needle insertion. The externally removable [address] [employer] gastros rachel tube was lubricated. The G-tube was tied to the guide wire and pulled through the mouth and into the stomach. The trocar needle was removed, and the gastrostomy tube was pulled out from the stomach through the skin. The external bumper was attached to the gastrostomy tube, and the tube was cut to remove the guide wire. The final position of the gastrostomy tube wa s confirmed by relook endoscopy, and skin marking noted to be 3.5 cm at t he external bumper. The final tension and compression of the abdominal wal l by the PEG tube and external bumper were checked and revealed that the bum per was moderately tight and mildly deforming the skin. The feeding tube wa s capped, and the tube site cleaned and dressed. Estimated blood loss: no ne. The examined duodenum was normal. A single localized, 7 mm non-bleeding erosion was found in the gastric body. There were no stigmata of recent bleeding. Estimated Blood Loss: Estimated blood loss: none. Post Op Diagnosis: - Normal esophagus. - Gastritis. - Normal examined duodenum. - Non-bleeding erosive gastropathy. - An externally removable PEG placement was successfully completed. - No specimens collected. Recommendation: - Please follow the post-PEG recommendations including: Nutrition consu lt for formula and volume, change dressing once per day, NPO x4 hrs then w ater today, may use PEG today for meds and water, check site for bleeding q 4 hrs and clean site with soap and water daily and dry thoroughly. Attending Participation: I personally performed the entire procedure. Teresita Briones MD Teresita Briones MD 05/26/2017 4:15:06 PM This report has been signed electronicallyTeresita Briones MD Number of Addenda: 0 Note Initiated On: 05/26/2017 3:18 PM [email or web address]}
--- NOTE | 2017-05-26 16:33 | GCON ---
[f rep st] CONSULTATION INPATIENT CONSULTATION NOTE REFERRING PHYSICIAN: Ramesh Dillard MD REASON FOR CONSULTATION: Feeding difficulty and consideration of PEG tube placement. CHIEF COMPLAINT: Evaluation for PEG tube. HISTORY OF PRESENT ILLNESS: Briefly, the patient is a 71-year-old male admitted to the hospital on 0 05/16/2017 with progressive weakness. Ultimately, he was diagnosed with fairly advanced Guillain-Boyd e syndrome. He is currently in a relatively "locked in" state with near-total neuromuscular paralysi s. He is ventilator dependent, and likely has a very long-term recovery. In this setting, a more du rable source of enteral feeding is desired. The details of his history are obtained from the family members, as well as from the chart. He has had no prior abdominal surgeries. He has no history of gastrointestinal disease. PAST MEDICAL HISTORY: Includes hypertension and hypothyroidism. HOME MEDICATIONS: Levothyroxine, lisinopril, hydrochlorothiazide, azithromycin. PAST SURGICAL HISTORY: Includes only colonoscopy. FAMILY HISTORY: Negative for colon cancer. SOCIAL HISTORY: He is retired. He does not smoke, drink, or use drugs. ALLERGIES: None. REVIEW OF SYSTEMS: A complete 10-point review of systems was undertaken with the patient's family me mber. The pertinent positives and negatives were in the History of Present Illness. A detailed revi ew of systems could not be obtained from the patient himself due to his neurologic status. PHYSICAL EXAM: GENERAL: This is a well-developed male, in no apparent distress. HEENT: His pupils are equal, round, reactive to light and accommodation. His sclerae are nonicteric. His oropharynx is clear. He has an NG tube in place. NECK: Supple. He has had recent tracheostomy. HEART: Regu lar, without murmurs. LUNGS: Clear to auscultation bilaterally on the ventilator. ABDOMEN: Soft, nontender. There are no abdominal scars. He has a small midline ventral hernia. EXTREMITIES: Free of cyanosis, clubbing, and edema. NEURO: Exam reveals poor responsiveness and flaccid paralysis. SKIN: Warm and dry. His joints show no arthritis. LABORATORY DATA: White count of 10.48, hemoglobin of 12.6, hematocrit of 36.2, platelet count of 322 . INR 1.1 on admission. Sodium of 145, potassium of 3.8, chloride of 104, bicarb of 33, BUN of 34, creatinine of 0.7. IMPRESSION/RECOMMENDATIONS: The patient is unlikely to recover quickly from his severe Guillain-Boyd e disease. He is likely to have a prolonged ventilator-dependent requirement during his recovery per iod. In addition, it is unlikely he will return to normal swallowing quickly. As such, I do believe he is a good candidate for the placement of a PEG tube. The risks and benefits were discussed with the patient and the patient's family member at the bedside , along with the ACCOUNTS ADMINISTRATOR. Perforation, infection, and bleeding were all discussed. Alternatives, suc h as prolonged TPN, prolonged NG tube, or alternative placement strategies were discussed as well. I n the end, the patient's family member, durable power of divorce attorney, agreed to proceed with PEG tube. The patient will not need any additional antibiotic therapies, as he is on them currently for his pne umonia. We will plan his PEG tube to occur soon. He should remain with his tube feeds held and his antiplatelet therapies held, until the PEG tube is placed. /[id number]/MODL
[2017-05-26] MEDS: NS W/ 20 KCl/L 1,000 ML IV SCH (17:55)
[2017-05-26] MEDS ORDERED: POTASSIUM CL 20 MEQ/15 ML UDCUP TUBE ONE (20:15)
[2017-05-26] MEDS: SENNOSIDES 17.6 MG/10 ML UDL - IF LIQUID ORDERED PO SCH (21:10)
[2017-05-27] MEDS: PETROLAT,WHT/MIN OIL/SOD CHL 3.5 GM OPHT.OINT EACHEYE SCH ×6 (00:05→20:01)
[2017-05-27] MEDS: LEVOTHYROXINE 50 MCG TAB TUBE SCH (06:27)
--- NOTE | 2017-05-27 07:28 | PDCONSULT ---
Medical Research Tech Note: PEG tube site check. No fever overnight. PEG site looks good. Bumper adjusted to 3cm Recs: OK to use PEG for feeds, meds, flushed. Informed RN and patient's partner. Will sign off, call with questions.
[2017-05-27] MEDS ORDERED: POTASSIUM CL 10 MEQ TAB TUBE ONE (07:40)
[2017-05-27] MEDS: ACETAMINOPHEN 650 MG/20.3 ML UDCUP TUBE PRN ×2 (07:58→22:25)
[2017-05-27] MEDS: ENOXAPARIN 40 MG/0.4 ML SYR SC SCH (07:59)
[2017-05-27] MEDS: CHLORHEXIDINE GLUCONATE 15 ML UDL PO SCH ×2 (07:59→20:01)
[2017-05-27] MEDS: FAMOTIDINE 20 MG TAB TUBE SCH ×2 (08:01→20:02)
[2017-05-27] MEDS: LABETALOL HCL 100 MG TAB TUBE SCH ×2 (08:04→20:02)
[2017-05-27] MEDS: LISINOPRIL 5 MG TAB TUBE SCH (08:05)
[2017-05-27] MEDS: SENNOSIDES 17.6 MG/10 ML UDL - IF LIQUID ORDERED PO SCH ×2 (08:13→20:03)
[2017-05-27] MEDS ORDERED: LIDOCAINE 1% 300 MG/30 ML SDV MISC ONE (08:38)
[2017-05-27] MEDS ORDERED: LIDOCAINE 1% 300 MG/30 ML SDV ONE (08:39)
--- NOTE | 2017-05-27 09:20 | HOSPPROG ---
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 flu - cont levaquin D#08/12 # htn - have been labile - cont home lisino, cont labetalol (started here); may need to increase dose # cervical and lumbar spinal stenosis # persistent leukocytosis - down today # hypoNa - resolved # hypothyroid - TSH ok; synthroid # FEN - TF at goal # dvt ppx - lovenox Subjective: s/p bronch today; no BM overnight; moved his face slightly Objective: Vital Signs Temp Pulse Resp BP Pulse Ox 37.7 C 89 18 169/77 H 96 05/27/17 06:00 05/27/17 08:04 05/27/17 09:02 05/27/17 08:05 05/27/17 09:02 Laboratory Results 05/26/17 06:15 05/27/17 06:25 05/26/17 05/27/17 05/28/17 05:59 05:59 05:59 Intake Total 2199.4 1418.9 Output Total 2300 1900 Balance -100.6 -481.1 PT 14.4 SEC (12.0-15.0) 05/17/17 04:50 INR 1.10 (0.83-1.16) 05/17/17 04:50 - Physical Exam Constitutional: other (flaccid paralysis) Ears, Nose, Mouth, Throat: other (trach) Cardiovascular: regular rate and rhythym, no murmur, rub, or gallop Respiratory: clear to auscultation, other (coarse BS), No reduced air movement, No expiratory wheeze, No inspiratory crackles Gastrointestinal: other (dmiinished BS; soft; PEG), No hepatosplenomegally ICD10 Worksheet Patient Problems: Problems Problem Status Onset Guillain Boyd syndrome Acute Hyponatremia with decreased serum osmolality Acute Lower respiratory infection Acute
--- NOTE | 2017-05-27 12:46 | PDINTPN ---
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 Work-up most consistent with Guiallan [place] and started IVIG, but little to no improvement since. He has required frequent bronchoscopies for excess secretions and has been treated for PNA. Vent settings have been minimal. * Acute respiratory failure 2/2 GB. Brief dedsat after PEG resolved without intervention. He is relatively stable from GB perspective, though may have had some eye opening. Today is vent day#11. No complications from trach, though bronch did show copious secretions. I suspect his lack of diaphragmatic movement is contributing to poor clearance. Re-bronch today revealed mucous plugs in VERONIQUE and a few LLL- easily cleared. Recheck am CXR, sent for cx * GB- poor prognosis discussed with neurology. S/P IVIG. Minimize sedation as much as possible * HTN- stable * * * critical care time 35 minutes separate from procedures Subjective: s/p trach/peg Objective: Vital Signs Temp Pulse Resp BP Pulse Ox 37.7 C 89 18 169/77 H 95 05/27/17 06:00 05/27/17 08:04 05/27/17 11:14 05/27/17 08:05 05/27/17 11:14 Microbiology 05/27/17 08:45 - Final Sputum, Induced/Suctioned Laboratory Results 05/26/17 06:15 05/27/17 12:00 05/26/17 05/27/17 05/28/17 05:59 05:59 05:59 Intake Total 2199.4 1418.9 Output Total 2300 1900 Balance -100.6 -481.1 PT 14.4 SEC (12.0-15.0) 05/17/17 04:50 INR 1.10 (0.83-1.16) 05/17/17 04:50 Physical Exam - Physical Exam General Appearance: no apparent distress, obtunded EENT: PERRL/EOMI, ET tube, other (trach) Neck: supple Respiratory: lungs clear, decreased breath sounds, No respiratory distress, No accessory muscle use Cardiac/Chest: regular rate, rhythm, No edema Abdomen: non-tender, soft, other (peg), No distended Skin: normal color, warm/dry, No cyanosis Lymphatic: no adenopathy Extremities: No pedal edema Neuro/Psych: motor weakness, cognition abnormalities ICD10 Worksheet Patient Problems: Problems Problem Status Onset Guillain Boyd syndrome Acute Hyponatremia with decreased serum osmolality Acute Lower respiratory infection Acute
[2017-05-27] MEDS ORDERED: POTASSIUM Cl (KCl) 50 ML IV SCH (13:05)
--- NOTE | 2017-05-27 13:57 | GPN ---
[f rep st] PROCEDURE NOTE DATE OF PROCEDURE: 05/27/2017 PROCEDURE: Bronchoscopy. INDICATION: 1. Respiratory failure. 2. Secretions. CONSENT: Informed consent was obtained from the patient's daughter prior to the administration of an esthesia and the procedure and she agreed to proceed. SEDATION: Conscious sedation was waived as the patient was quite stable on vent and only use topical lidocaine. PROCEDURE IN DETAIL: The bronchoscope was easily passed through the newly placed tracheostomy tube. There were thick mucus plugs found in the right mainstem down to the right lower lobes with very lit tle in the right upper lobe. These were easily cleared, were mostly white with somewhat estrada secretio ns. There were also few mucus plugs in the left lower lobe that were also easily removed. Overall, the patient tolerated the procedure well. There were no complications. /[id number]/MODL
[2017-05-27] MEDS: POTASSIUM Cl (KCl) 10 MEQ in NS 50 ML IV SCH ×3 (14:02→18:00)
--- NOTE | 2017-05-27 14:39 | ASMTCMCOM ---
CM Note CM Note Notes: Met with family for care team meeting at 12 noon. The patient's family is happy with care and demographics of LTAC. They are to go tour the facility. Dora Alves, myself and Dylon from Spiritual services present. Questions answered. Plan to LTAC when medically stable. CM to follow. Date Signed: 05/27/2017 02:39 PM Electronically Signed By:Camille Elliott RN
[2017-05-27] MEDS: METOCLOPRAMIDE 10 MG/2 ML VIAL IV SCH ×2 (18:13→22:25)
[2017-05-27] MEDS ORDERED: POTASSIUM CL 20 MEQ/15 ML UDCUP TUBE ONE (19:15)
[2017-05-27] MEDS: NS W/ 20 KCl/L 1,000 ML IV SCH (22:20)
[2017-05-28] MEDS: PETROLAT,WHT/MIN OIL/SOD CHL 3.5 GM OPHT.OINT EACHEYE SCH ×6 (00:38→19:49)
[2017-05-28] MEDS: METOCLOPRAMIDE 10 MG/2 ML VIAL IV SCH ×4 (04:07→22:16)
[2017-05-28] MEDS: ACETAMINOPHEN 650 MG/20.3 ML UDCUP TUBE PRN ×2 (04:10→12:13)
[2017-05-28 04:15] LABS: PLATELET COUNT 283 10^3/uL (150-400)
[2017-05-28] MEDS ORDERED: POTASSIUM CL 10 MEQ TAB TUBE ONE (05:02)
[2017-05-28] MEDS ORDERED: D5W 1,000 ML IV SCH (06:15)
[2017-05-28] MEDS ORDERED: POTASSIUM CL 20 MEQ/15 ML UDCUP ONE (06:33)
[2017-05-28] MEDS: LEVOTHYROXINE 50 MCG TAB TUBE SCH (06:35)
[2017-05-28] MEDS: ENOXAPARIN 40 MG/0.4 ML SYR SC SCH (08:00)
[2017-05-28] MEDS: SENNOSIDES 17.6 MG/10 ML UDL - IF LIQUID ORDERED PO SCH ×2 (08:01→20:02)
[2017-05-28] MEDS: FAMOTIDINE 20 MG TAB TUBE SCH ×2 (08:01→20:02)
[2017-05-28] MEDS: CHLORHEXIDINE GLUCONATE 15 ML UDL PO SCH (08:01)
[2017-05-28] MEDS: LABETALOL HCL 100 MG TAB TUBE SCH (08:10)
[2017-05-28] MEDS: LISINOPRIL 5 MG TAB TUBE SCH (08:12)
[2017-05-28] MEDS: VANCOMYCIN 1.25 GM in NS 250 ML IV SCH ×2 (08:13→19:49)
[2017-05-28] MEDS: hydrALAZINE 20 MG/ML VIAL IVP PRN (08:22)
[2017-05-28] MEDS ORDERED: LABETALOL HCL 200 MG TAB TUBE ONE (10:00)
--- NOTE | 2017-05-28 10:20 | HOSPPROG ---
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 flu - 1+ GPC and GPR in bronch - s/p levaquin x 7 days - vanc started today by Dr Vasquez # htn - have been labile - cont home lisino, incr labetalol (started here) today # cervical and lumbar spinal stenosis # persistent leukocytosis - recheck tomorrow # hypoNa - resolved # hypothyroid - TSH ok; synthroid # FEN - TF at goal; hyperNa today, D5W # dvt ppx - lovenox Subjective: no BM overnight Objective: Vital Signs Temp Pulse Resp BP Pulse Ox 37.7 C 88 18 156/75 H 98 05/28/17 08:00 05/28/17 10:04 05/28/17 08:00 05/28/17 10:04 05/28/17 08:00 Microbiology 05/27/17 08:45 - Final Sputum, Induced/Suctioned Laboratory Results 05/28/17 04:00 05/28/17 04:00 05/27/17 05/28/17 05/29/17 05:59 05:59 05:59 Intake Total 1418.9 2447 Output Total 1900 1200 Balance -481.1 1247 PT 14.4 SEC (12.0-15.0) 05/17/17 04:50 INR 1.10 (0.83-1.16) 05/17/17 04:50 high risk - Physical Exam Constitutional: other (sleeping; flaccid paralysis) Ears, Nose, Mouth, Throat: other (trach) Cardiovascular: regular rate and rhythym, no murmur, rub, or gallop Respiratory: no rales or rhonchi, clear to auscultation Gastrointestinal: other (soft, mild distension, PEG), No rebound ICD10 Worksheet Patient Problems: Problems Problem Status Onset Guillain Boyd syndrome Acute Hyponatremia with decreased serum osmolality Acute Lower respiratory infection Acute
[2017-05-28] MEDS ORDERED: MIDAZOLAM 2 MG/2 ML VIAL IVP ONE (14:00)
[2017-05-28] MEDS ORDERED: fentaNYL 100 MCG/2 ML INJ IVP ONE (14:00)
--- NOTE | 2017-05-28 14:39 | ASMTCMCOM ---
CM Note CM Note Notes: Patient discussed in am rounds 71 lesvia old male with dx of Guillian- [place] Syndrome . Will have repeat bronchoscopy this afternoon. Family looking at various LTAC facilities in the area this Wednesday. Referral in place for [facility] in place. CM to follow. Date Signed: 05/28/2017 02:38 PM Electronically Signed By:Camille Elliott RN
[2017-05-28] MEDS ORDERED: POTASSIUM Cl (KCl) 50 ML IV ONE (14:45)
[2017-05-28] MEDS: ACETYLCYSTEINE 20% IH/PO 4 ML VIAL IH SCH (15:02)
[2017-05-28] MEDS: ALBUTEROL 3 ML DEYVIAL IH SCH (15:02)
--- NOTE | 2017-05-28 15:06 | PDINTPN ---
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 Work-up most consistent with Guiallan [place] and started IVIG, but little to no improvement since. He has required frequent bronchoscopies for excess secretions and has been treated for PNA. Vent settings have been minimal. * Acute respiratory failure 2/2 GB. Brief desat after PEG resolved without intervention, but again this am with position. Today is vent day#12. No complications from trach, though bronch did show copious secretions. I suspect his lack of diaphragmatic movement is contributing to poor clearance. He has benefitted substantially from frequent, if not daily, bronchoscopy revealing copious secretions in lower airways, including 05/27 and 05/28. Resumed mucomyst/ albuterol and added scheduled CPT today. FiO2 continues to drop, however. * GB- poor prognosis discussed with neurology. S/P IVIG. Minimize sedation as much as possible. He is relatively stable from GB perspective, though may have had some eye opening. * HTN- stable * Dispo: family making progress in LTACH eval and anticipate dc next week. Have counseled the family extensively about LTACH expectations * * critical care time 35 minutes separate from procedures 05/28/17 15:03 Subjective: relatively stable, though desaturation with turning Objective: Vital Signs Temp Pulse Resp BP Pulse Ox 37.3 C 88 18 119/60 97 05/28/17 12:00 05/28/17 14:00 05/28/17 14:47 05/28/17 14:00 05/28/17 14:47 Microbiology 05/27/17 08:45 - Final Sputum, Induced/Suctioned Laboratory Results 05/28/17 04:00 05/28/17 12:20 05/27/17 05/28/17 05/29/17 05:59 05:59 05:59 Intake Total 1418.9 2447 Output Total 1900 1200 Balance -481.1 1247 PT 14.4 SEC (12.0-15.0) 05/17/17 04:50 INR 1.10 (0.83-1.16) 05/17/17 04:50 Physical Exam - Physical Exam General Appearance: no apparent distress, obtunded EENT: PERRL/EOMI, other (trach site clean and dry) Neck: supple Respiratory: decreased breath sounds, rhonchi, No respiratory distress, No accessory muscle use Cardiac/Chest: regular rate, rhythm, No edema Abdomen: non-tender, soft, No distended Skin: normal color, warm/dry, No cyanosis Lymphatic: no adenopathy Extremities: No pedal edema Neuro/Psych: motor weakness, cognition abnormalities ICD10 Worksheet Patient Problems: Problems Problem Status Onset Guillain Boyd syndrome Acute Hyponatremia with decreased serum osmolality Acute Lower respiratory infection Acute
--- NOTE | 2017-05-28 15:21 | GPN ---
[f rep st] PROCEDURE NOTE DATE OF PROCEDURE: 05/28/2017 PROCEDURE: Bronchoscopy. INDICATION: Respiratory failure in the setting of a Guillain-[place] syndrome and excess mucus product ion. CONSENT: Informed consent was obtained from the patient's daughter prior to the administration of an esthesia. The risks and benefits were explained in detail and she agreed to proceed. ANESTHESIA: Conscious sedation was achieved using 1 mg Versed, 25 mcg of fentanyl without complicati on. PROCEDURE IN DETAIL: The bronchoscope was passed easily through the existing trachea which showed a normal main trachea and meryl as well as proximal right mainstem, however, in the bronchus intermedi us and lower, there was substantial mucus plugging and thick tenacious and somewhat blood-tinged mucu s. While these were somewhat difficult to remove, having to take the scope in and out several times to get them, we eventually achieved excellent clearance of the airways. There were similar mucus plu ggings in the lower segments of the left lung, but not as severe as the right. There were no endobro nchial lesions. The patient tolerated the procedure well. No complications. /[id number]/MODL
[2017-05-28] MEDS: LABETALOL HCL 200 MG TAB TUBE SCH (20:02)
[2017-05-29] MEDS: ACETYLCYSTEINE 20% IH/PO 4 ML VIAL IH SCH ×5 (00:07→23:35)
[2017-05-29] MEDS: ALBUTEROL 3 ML DEYVIAL IH SCH ×5 (00:07→23:35)
[2017-05-29] MEDS: PETROLAT,WHT/MIN OIL/SOD CHL 3.5 GM OPHT.OINT EACHEYE SCH ×7 (00:12→23:57)
[2017-05-29] MEDS ORDERED: POTASSIUM Cl (KCl) 50 ML IV ONE ×2 (01:20→08:49)
[2017-05-29] MEDS: METOCLOPRAMIDE 10 MG/2 ML VIAL IV SCH ×4 (05:08→21:25)
[2017-05-29] MEDS: LEVOTHYROXINE 50 MCG TAB TUBE SCH (05:08)
[2017-05-29 05:27] LABS: PLATELET COUNT 274 10^3/uL (150-400)
[2017-05-29] MEDS: VANCOMYCIN 1.25 GM in NS 250 ML IV SCH ×2 (08:15→21:33)
[2017-05-29] MEDS: ENOXAPARIN 40 MG/0.4 ML SYR SC SCH (08:15)
[2017-05-29] MEDS: LABETALOL HCL 200 MG TAB TUBE SCH ×2 (08:15→21:23)
[2017-05-29] MEDS: LISINOPRIL 5 MG TAB TUBE SCH (08:15)
[2017-05-29] MEDS: GABAPENTIN 100 MG CAP TUBE SCH ×3 (08:15→21:24)
[2017-05-29] MEDS: FAMOTIDINE 20 MG TAB TUBE SCH ×2 (08:15→21:24)
[2017-05-29] MEDS: SENNOSIDES 17.6 MG/10 ML UDL - IF LIQUID ORDERED PO SCH ×2 (09:36→21:25)
[2017-05-29] MEDS: ACETAMINOPHEN 650 MG/20.3 ML UDCUP TUBE PRN (11:27)
--- NOTE | 2017-05-29 11:52 | PDINTPN ---
Licensed Marriage And Family Therapist Progress Note Assessment/Plan: Assessment/plan: 71 M admitted 05/17/17 with progressive LE weakness and developed acute respiratory failure. Work-up most consistent with Guiallan [place] and started IVIG, but little to no improvement since. He has required frequent bronchoscopies for excess secretions and has been treated for PNA. Vent settings have been minimal. * Acute respiratory failure 2/ GB. Today is vent day#13. I suspect his lack of diaphragmatic movement is contributing to poor clearance. He has benefitted substantially from frequent, if not daily, bronchoscopy revealing copious secretions in lower airways, including 05/27 and 05/28. Resumed mucomyst/ albuterol and added scheduled CPT 05/28. FiO2 down to 40% and had CPAP trial today at PS10 for 2 hours, though CO2 80 and pH 7.2 so stopped. Rest the remainder of today and consider shorter or high PS weans in AM. * GB- poor prognosis discussed with neurology. S/P IVIG. Minimize sedation as much as possible. He is relatively stable from GB perspective, though may have had some eye opening. Lengthy discussion about prognosis and prediction formulas with daughter today. Added gabapentin for possible neuropathic pain though very hard to tell. Continue with ROM, skin care, etc * HTN- stable- may represent autonomic dysfunction * Dispo: family making progress in LTACH eval and anticipate dc next week. Have counseled the family extensively about LTACH expectations * * 05/28/17 15:03 05/29/17 11:49 Subjective: no events Objective: Vital Signs Temp Pulse Resp BP Pulse Ox 37.4 C 80 18 96/51 L 97 05/29/17 10:00 05/29/17 10:40 05/29/17 10:40 05/29/17 10:00 05/29/17 10:40 Microbiology 05/27/17 08:45 - Final Sputum, Induced/Suctioned Laboratory Results 05/29/17 05:15 05/29/17 05:15 05/28/17 05/29/17 05/30/17 05:59 05:59 05:59 Intake Total 2447 2742 Output Total 1200 1750 Balance 1247 992 PT 14.4 SEC (12.0-15.0) 05/17/17 04:50 INR 1.10 (0.83-1.16) 05/17/17 04:50 Physical Exam - Physical Exam General Appearance: no apparent distress, obtunded EENT: PERRL/EOMI Neck: supple Respiratory: lungs clear, normal breath sounds, No respiratory distress, No accessory muscle use Cardiac/Chest: regular rate, rhythm, No edema Abdomen: non-tender, soft, No distended Skin: normal color, warm/dry, No cyanosis Lymphatic: no adenopathy Extremities: No pedal edema Neuro/Psych: motor weakness, cognition abnormalities ICD10 Worksheet Patient Problems: Problems Problem Status Onset Guillain Boyd syndrome Acute Hyponatremia with decreased serum osmolality Acute Lower respiratory infection Acute
--- NOTE | 2017-05-29 16:24 | HOSPPROG ---
Hospitalist Progress Note Assessment/Plan: 1. 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 Patient has received a course of IVIG. Prognosis was discussed with Dr. Vasquez and family today. The fact of the quick onset in his H was discussed as a poor prognostic factor patient. The patient's family appeared to understand this during the discussion. Due to the severity of his condition it is anticipated that he will need long-term acute care. 2. Acute hypoxic respiratory failure-patient currently has a tracheostomy continue. Continue current ventilator recommended the shins and weaning trials per Dr. Vasquez. 3. Pneumonia-patient has completed a course of Levaquin. He is currently on vancomycin. 4. Constipation-continue current bowel regimen. Bowel movements have been documented daily over the past 3 days. 5. Hypernatremia-improved with sodium level going from 152 yesterday 149 today continue to trend. 6. Hypertension-controlled with some low readings today. Continue to monitor with the current lisinopril 5 mg daily and labetalol 400 mg twice a day. We may need to adjust the dose of labetalol downward however will follow over the next 24 hr. 7. Hypothyroidism-continue current levothyroxine at 50 mcg daily. 8. Food electrolytes nutrition-continue current Jevity tube feeds. Consider pre-albumin level in the coming days. 9. Bowel and bladder-continue current Pepcid for stress ulcer prophylaxis. Continue bowel regimen including Senokot MiraLax and lactulose. 10. DVT prophylaxis-continue current Lovenox. 11. Disposition-planning on a long-term acute care facility. Patient is a full code status. Subjective: No acute events overnight. The patient is not conversant at this time I did update his daughter and were present at bedside today. Their questions were answered Dr. Vasquez also of visit with them and updated them on the patient's condition. Objective: Vital Signs Temp Pulse Resp BP Pulse Ox 37.0 C 83 18 102/52 L 97 05/29/17 12:00 05/29/17 15:50 05/29/17 15:50 05/29/17 14:00 05/29/17 15:50 Microbiology 05/27/17 08:45 - Final Sputum, Induced/Suctioned Laboratory Results 05/29/17 05:15 05/29/17 05:15 05/28/17 05/29/17 05/30/17 05:59 05:59 05:59 Intake Total 7321 2742 Output Total 1200 1750 Balance 1247 992 PT 14.4 SEC (12.0-15.0) 05/17/17 04:50 INR 1.10 (0.83-1.16) 05/17/17 04:50 - Physical Exam Constitutional: no apparent distress, appears nourished, not in pain Cardiovascular: regular rate and rhythym, no murmur, rub, or gallop Respiratory: other (mild coarsenss. No wheezing.) Gastrointestinal: normoactive bowel sounds, soft, non-tender abdomen, no palpable masses Genitourinary: mccann in urethra Skin: warm, normal color ICD10 Worksheet Patient Problems: Problems Problem Status Onset Guillain Boyd syndrome Acute Hyponatremia with decreased serum osmolality Acute Lower respiratory infection Acute
[2017-05-30] MEDS: METOCLOPRAMIDE 10 MG/2 ML VIAL IV SCH ×4 (04:49→20:16)
[2017-05-30] MEDS ORDERED: POTASSIUM Cl (KCl) 10 MEQ in NS 50 ML IV SCH (05:00)
[2017-05-30] MEDS: ACETYLCYSTEINE 20% IH/PO 4 ML VIAL IH SCH ×4 (05:15→20:56)
[2017-05-30] MEDS: ALBUTEROL 3 ML DEYVIAL IH SCH ×4 (05:15→20:56)
[2017-05-30] MEDS: LEVOTHYROXINE 50 MCG TAB TUBE SCH (05:22)
[2017-05-30] MEDS: PETROLAT,WHT/MIN OIL/SOD CHL 3.5 GM OPHT.OINT EACHEYE SCH ×5 (05:22→19:37)
[2017-05-30] MEDS: POTASSIUM Cl (KCl) 10 MEQ in NS 50 ML IV SCH ×2 (05:24→05:25)
[2017-05-30] MEDS: ENOXAPARIN 40 MG/0.4 ML SYR SC SCH (08:39)
[2017-05-30] MEDS: VANCOMYCIN 1.25 GM in NS 250 ML IV SCH (08:39)
[2017-05-30] MEDS: LISINOPRIL 5 MG TAB TUBE SCH (08:40)
[2017-05-30] MEDS: LABETALOL HCL 200 MG TAB TUBE SCH (08:40)
[2017-05-30] MEDS: GABAPENTIN 100 MG CAP TUBE SCH ×3 (08:40→20:16)
[2017-05-30] MEDS: FAMOTIDINE 20 MG TAB TUBE SCH ×2 (08:40→20:16)
[2017-05-30] MEDS: SENNOSIDES 17.6 MG/10 ML UDL - IF LIQUID ORDERED PO SCH ×2 (09:36→19:38)
[2017-05-30] MEDS ORDERED: LIDOCAINE 1% 300 MG/30 ML SDV ONE (13:03)
--- NOTE | 2017-05-30 16:09 | HOSPPROG ---
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 No acute events overnight. We are continuing attempts at its weaning. He did develop a respiratory acidosis yesterday during a weaning attempt. Family was present at the bedside today and present for ICU rounds. They were updated on the current status. Dr. Vasquez did say from his standpoint if we did get acceptance to an LTAC facility that he feels the patient is ready for transfer. Objective Vital signs as detailed below On exam, patient appears comfortable. Heart, regular no murmurs appreciated. On lung exam, mildly coarse anteriorly. No significant wheezing appreciated and good breath sounds heard throughout. On abdominal exam, soft nontender nondistended normal bowel sounds. , Reddy catheter in place. Extremities, no significant pitting edema noted. Skin, no concerning skin rashes visualized. Labs as detailed below Assessment and plan 1. 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 Patient has already received a course of IVIG. The patient's family do appear to understand that his prognosis is guarded and that he is anticipated to have a long road in front of him in regards to rehabilitation. Medically it is felt that the patient is ready for transfer to an LTAC facility once placement has been obtained. 2. Acute hypoxic respiratory failure-this is secondary to Guillain-[place] syndrome. The patient currently has a tracheostomy. Continue ventilator settings and weaning trials per Pulmonary Critical Care Medicine. 3. Pneumonia-patient has completed a course of Levaquin. He is currently on vancomycin. 4. Constipation-continue bowel regimen he has had bowel movements documented daily over the past days. 5. Hypernatremia-improving. A repeat sodium level has been ordered for tomorrow. He is currently receiving 50 mL of free water every 4 hr through his PEG tube. 6. Hypertension-controlled with some readings running low normal. Continue current lisinopril 5 mg daily. I have reduced the labetalol from 40 mg twice a day to 200 mg twice a day. 7. Hypothyroidism-continue current levothyroxine at 50 mcg daily. 8. Food electrolytes nutrition-tube feeds are at goal with Jevity. 9. Bowel and bladder-patient is on Pepcid for GI prophylaxis. He is also on MiraLax lactulose and Senokot which has been effective for daily bowel movements. He is currently on Reglan as well. Possibly this could be weaned and tapered over the coming days if he is tolerating tube feeds. 10. DVT prophylaxis patient is currently on Lovenox. 11. Disposition-continue work with PT and OT awaiting LTAC facility placement. Objective: Vital Signs Temp Pulse Resp BP Pulse Ox 37.8 C 83 18 139/74 H 98 05/30/17 12:00 05/30/17 14:00 05/30/17 14:00 05/30/17 14:00 05/30/17 14:00 Microbiology 05/27/17 08:45 - Final Sputum, Induced/Suctioned Sputum Culture - Final Rina Albicans Laboratory Results 05/29/17 05:15 05/30/17 03:20 05/29/17 05/30/17 05/31/17 05:59 05:59 05:59 Intake Total 2742 2638 Output Total 1750 1500 Balance 992 1138 PT 14.4 SEC (12.0-15.0) 05/17/17 04:50 INR 1.10 (0.83-1.16) 05/17/17 04:50 ICD10 Worksheet Patient Problems: Problems Problem Status Onset Guillain Boyd syndrome Acute Hyponatremia with decreased serum osmolality Acute Lower respiratory infection Acute
--- NOTE | 2017-05-30 16:54 | GPN ---
[f rep st] PROCEDURE NOTE DATE OF PROCEDURE: 05/30/2017 PROCEDURE PERFORMED: Bronchoscopy. INDICATION: Ventilator-dependency and Guillain-[place] syndrome. CONSENT: Informed consent was obtained from the patient's daughter prior to the administration of an esthesia. The risks and benefits of the procedure and conscious sedation were explained in detail, a nd she agreed to proceed. CONSCIOUS SEDATION: Conscious sedation was not required as the procedure itself was really quite elva rt. PROCEDURE: Bronchoscope was easily passed through the existing tracheostomy tube. There were mild t o moderate mucus plugs, primarily in the right lower lobe, that were white and nonbloody. There were a few in the left lower lobe as well. Upper lobe was clear. These were easily removed without much difficulty. Patient tolerated the procedure well. There were no complications. /[id number]/MODL
[2017-05-30] MEDS ORDERED: POTASSIUM CL 10 MEQ TAB PO ONE (19:42)
[2017-05-30] MEDS ORDERED: POTASSIUM CL 20 MEQ/15 ML UDCUP TUBE ONE (20:00)
[2017-05-30] MEDS: ACETAMINOPHEN 650 MG/20.3 ML UDCUP TUBE PRN (20:16)
[2017-05-30] MEDS: LABETALOL HCL 200 MG TAB PO SCH (20:16)
[2017-05-31] MEDS: ACETAMINOPHEN 650 MG/20.3 ML UDCUP TUBE PRN ×2 (00:10→20:14)
[2017-05-31] MEDS: PETROLAT,WHT/MIN OIL/SOD CHL 3.5 GM OPHT.OINT EACHEYE SCH ×6 (00:11→19:06)
[2017-05-31] MEDS: LORazepam 2 MG/ML INJ IVP PRN (04:05)
[2017-05-31] MEDS: ACETYLCYSTEINE 20% IH/PO 4 ML VIAL IH SCH ×3 (04:13→17:03)
[2017-05-31] MEDS: ALBUTEROL 3 ML DEYVIAL IH SCH ×3 (04:13→17:03)
[2017-05-31] MEDS: LEVOTHYROXINE 50 MCG TAB TUBE SCH (06:05)
[2017-05-31] MEDS: METOCLOPRAMIDE 10 MG/2 ML VIAL IV SCH (06:06)
[2017-05-31 06:27] LABS: PLATELET COUNT 275 10^3/uL (150-400)
[2017-05-31] MEDS: LABETALOL HCL 200 MG TAB PO SCH ×2 (08:34→20:14)
[2017-05-31] MEDS: GABAPENTIN 100 MG CAP TUBE SCH ×3 (08:34→20:14)
[2017-05-31] MEDS: ENOXAPARIN 40 MG/0.4 ML SYR SC SCH (08:34)
[2017-05-31] MEDS: FAMOTIDINE 20 MG TAB TUBE SCH ×2 (08:35→20:14)
[2017-05-31] MEDS: SENNOSIDES 17.6 MG/10 ML UDL - IF LIQUID ORDERED PO SCH ×2 (08:36→20:14)
[2017-05-31] MEDS: LISINOPRIL 5 MG TAB TUBE SCH (08:36)
[2017-05-31] MEDS ORDERED: POTASSIUM CL 10 MEQ TAB PO ONE (09:33)
[2017-05-31] MEDS ORDERED: POTASSIUM CL 20 MEQ/15 ML UDCUP TUBE ONE ×2 (09:45→17:15)
[2017-05-31] MEDS: LOPERAMIDE HCL 2 MG CAP PO PRN ×2 (10:59→15:00)
--- NOTE | 2017-05-31 11:42 | ASMTCMCOM ---
CM Note CM Note Notes: Spoke to Daughter, Tomasa and Mela, they are interested in patient being [place] [facility]. Contacted [facility] and sent updated patient info to them. Also faxed the [facility] paperwork provided by Tomasa. Patient may be able to be transferred today, if not tomorrow. Date Signed: 05/31/2017 11:41 AM Electronically Signed By:Karuna Fritz LCSW
--- NOTE | 2017-05-31 14:05 | PDINTPN ---
Tallow Pumper Progress Note Assessment/Plan: Assessment: 71 M admitted 05/17/17 with progressive LE weakness and developed acute respiratory failure. Work-up most consistent with Guiallan [place] and started IVIG, but little to no improvement since. He has required frequent bronchoscopies for excess secretions and has been treated for PNA. Vent settings have been minimal. * Acute respiratory failure 2/ GB. Today is vent day#14. I suspect his lack of diaphragmatic movement is contributing to poor clearance. He has benefitted substantially from frequent, if not daily, bronchoscopy revealing copious secretions in lower airways, including 05/27 and 05/28. Resumed mucomyst/ albuterol and added scheduled CPT 05/28. FiO2 down to 40%. On AC, not overbreathing vent. * GB- poor prognosis discussed with neurology. S/P IVIG. He is relatively stable from GB perspective, though no eye opening today. Added gabapentin for possible neuropathic pain though very hard to tell. Continue with ROM, skin care , etc * HTN- stable- may represent autonomic dysfunction. Now normal * Dispo: family making progress in LTACH eval and anticipate dc tomorrow. Plan: Have increased free H2O. Will recheck Na level, if higher,may give additional free H2O. Stop Ativan Reduce dose of labetalol U/A to assess for UTI. Start melatonin to help with circadian rhythm, as he does not open his eyes. Probable bronch tomorrow, then transfer to LTAC. 05/31/17 15:14 Subjective: Unresponsive Objective: Vital Signs Temp Pulse Resp BP Pulse Ox 38 C 85 18 94/46 L 94 05/31/17 08:00 05/31/17 12:00 05/31/17 12:00 05/31/17 12:00 05/31/17 12:00 Microbiology 05/27/17 08:45 - Final Sputum, Induced/Suctioned Sputum Culture - Final Rina Albicans Laboratory Results 05/31/17 06:10 05/31/17 06:10 05/30/17 05/31/17 06/01/17 05:59 05:59 05:59 Intake Total 2638 2253 Output Total 1500 1750 Balance 1138 503 PT 14.4 SEC (12.0-15.0) 05/17/17 04:50 INR 1.10 (0.83-1.16) 05/17/17 04:50 CXR: Stable bibasilar infiltrates/atelectasis. Images reviwed by me. Physical Exam - Physical Exam General Appearance: no apparent distress, No alert EENT: normal ENT inspection, other (trach OK) Neck: normal inspection Respiratory: lungs clear Cardiac/Chest: regular rate, rhythm Abdomen: normal bowel sounds, non-tender Skin: normal color Extremities: normal inspection Neuro/Psych: other (unresponsive), No alert ICD10 Worksheet Patient Problems: Problems Problem Status Onset Guillain Boyd syndrome Acute Hyponatremia with decreased serum osmolality Acute Lower respiratory infection Acute
--- NOTE | 2017-05-31 14:27 | HOSPPROG ---
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 Condition guarded. Medically it is felt that the patient is ready for transfer to an LTAC facility once placement has been obtained. # Acute hypoxic respiratory failure - secondary to above -wean vent as able per pulm # Pneumonia-patient has completed a course of Levaquin and Vanco # Leukocytosis - wbc's on the rise, Tmax 38.5. No change in respiratory status. C diff neg. Indwelling mccann noted. -send UA, UCx -send PCT -trend wbcs # Hypernatremia- Na on the rise -increase free water in tube feeds -recheck Na this afternoon # Hypertension- BP's 90's/40's on lisinopril and labetalol -decrease labetalol to 100 mg BID from 200 mg BID # Hypothyroidism-continue current levothyroxine at 50 mcg daily. # Food electrolytes nutrition-tube feeds are at goal with Jevity. # Bowel and bladder - Pepcid for GI prophylaxis. He is also on MiraLax, lactulose and Senokot which has been effective for daily bowel movements. -d/c reglan # DVT prophylaxis - Lovenox. # Disposition-continue work with PT and OT awaiting LTAC facility placement, possibly tomorrow. Discussed with drew, RN, CM, care team Subjective: Pt sedated more than usual. Had 1 mg IV ativan this am. Temp trending up, max 38.5. Objective: Vital Signs Temp Pulse Resp BP Pulse Ox 38 C 85 18 94/46 L 94 05/31/17 08:00 05/31/17 12:00 05/31/17 12:00 05/31/17 12:00 05/31/17 12:00 Microbiology 05/27/17 08:45 - Final Sputum, Induced/Suctioned Sputum Culture - Final Rina Albicans Laboratory Results 05/31/17 06:10 05/31/17 06:10 05/30/17 05/31/17 06/01/17 05:59 05:59 05:59 Intake Total 2638 2253 Output Total 1500 1750 Balance 1138 503 PT 14.4 SEC (12.0-15.0) 05/17/17 04:50 INR 1.10 (0.83-1.16) 05/17/17 04:50 - Physical Exam Constitutional: no apparent distress Eyes: PERRL Ears, Nose, Mouth, Throat: moist mucous membranes Cardiovascular: regular rate and rhythym Respiratory: no respiratory distress, clear to auscultation Gastrointestinal: normoactive bowel sounds, soft, non-tender abdomen Skin: warm Musculoskeletal: full muscle strength Psychiatric: encephalopathic ICD10 Worksheet Patient Problems: Problems Problem Status Onset Guillain Boyd syndrome Acute Hyponatremia with decreased serum osmolality Acute Lower respiratory infection Acute
[2017-05-31] MEDS ORDERED: MELATONIN 3 MG TAB PO SCH (21:00)
[2017-06-01] MEDS: ALBUTEROL 3 ML DEYVIAL IH SCH ×3 (00:15→11:41)
[2017-06-01] MEDS: ACETYLCYSTEINE 20% IH/PO 4 ML VIAL IH SCH ×3 (00:15→11:41)
[2017-06-01] MEDS: PETROLAT,WHT/MIN OIL/SOD CHL 3.5 GM OPHT.OINT EACHEYE SCH ×4 (00:21→11:53)
[2017-06-01 00:42] VITALS: RESP 18
[2017-06-01] MEDS: ACETAMINOPHEN 650 MG/20.3 ML UDCUP TUBE PRN (03:59)
[2017-06-01 04:16] LABS: PLATELET COUNT 242 10^3/uL (150-400)
[2017-06-01] MEDS: LEVOTHYROXINE 50 MCG TAB TUBE SCH (05:27)
[2017-06-01] MEDS ORDERED: POTASSIUM Cl (KCl) 50 ML IV ONE (06:28)
[2017-06-01] MEDS ORDERED: POTASSIUM CL 20 MEQ/15 ML UDCUP TUBE ONE (07:45)
[2017-06-01] MEDS: ENOXAPARIN 40 MG/0.4 ML SYR SC SCH (08:03)
[2017-06-01] MEDS: SENNOSIDES 17.6 MG/10 ML UDL - IF LIQUID ORDERED PO SCH (08:04)
[2017-06-01] MEDS: LISINOPRIL 5 MG TAB TUBE SCH (08:04)
[2017-06-01] MEDS: GABAPENTIN 100 MG CAP TUBE SCH (08:04)
[2017-06-01] MEDS: FAMOTIDINE 20 MG TAB TUBE SCH (08:04)
[2017-06-01] MEDS: LABETALOL HCL 200 MG TAB PO SCH (08:04)
[2017-06-01] MEDS ORDERED: fentaNYL 100 MCG/2 ML INJ ONE ×2 (11:00→11:01)
--- NOTE | 2017-06-01 11:07 | PDINTPN ---
Insurance Licensing Supervisor Progress Note Assessment/Plan: Assessment: 71 M admitted 05/17/17 with progressive LE weakness and developed acute respiratory failure. Work-up most consistent with Guiallan [place] and started IVIG, but little to no improvement since. He has required frequent bronchoscopies for excess secretions and has been treated for PNA. Vent settings have been minimal. * Acute respiratory failure 2/ GB. Today is vent day#14. I suspect his lack of diaphragmatic movement is contributing to poor clearance. He has benefitted substantially from frequent, if not daily, bronchoscopy revealing copious secretions in lower airways, including 05/27 and 05/28. Resumed mucomyst/ albuterol and added scheduled CPT 05/28. FiO2 down to 40%. On AC, not overbreathing vent. * GB- poor prognosis discussed with neurology. S/P IVIG. He is relatively stable from GB perspective, though no eye opening today. Added gabapentin for possible neuropathic pain though very hard to tell. Continue with ROM, skin care , etc * HTN- stable- may represent autonomic dysfunction. Now normal * Hypernatremia: Up a bit today despite increased free H2O * Dispo: family making progress in LTACH eval and anticipate dc later today or tomorrow. Plan: Have increased free H2O. Will recheck Na level, if higher,may give additional free H2O. No Ativan Continue melatonin to help with circadian rhythm, as he does not open his eyes. Will further increase free H2O, follow Na Bronch today, then transfer to LTAC. 06/01/17 11:35 06/01/17 11:40 Subjective: Unresponsive Objective: Vital Signs Temp Pulse Resp BP Pulse Ox 37.7 C 77 18 125/55 H 95 06/01/17 08:00 06/01/17 10:00 06/01/17 10:00 06/01/17 10:00 06/01/17 10:00 Laboratory Results 06/01/17 04:00 06/01/17 04:00 05/31/17 06/01/17 06/02/17 05:59 05:59 05:59 Intake Total 2253 2542 Output Total 1750 1425 300 Balance 503 1117 -300 PT 14.4 SEC (12.0-15.0) 05/17/17 04:50 INR 1.10 (0.83-1.16) 05/17/17 04:50 Laboratory Tests 05/31/17 14:45 Urine Nitrate NEGATIVE Urine Bilirubin NEGATIVE Ur Leukocyte Esterase NEGATIVE Ur Culture Indicated? NOT INDICATED Physical Exam - Physical Exam General Appearance: unresponsive EENT: normal ENT inspection Neck: normal inspection Respiratory: lungs clear, normal breath sounds Cardiac/Chest: regular rate, rhythm, No edema Abdomen: normal bowel sounds, non-tender, soft Skin: normal color, warm/dry Extremities: normal inspection Neuro/Psych: alert, normal mood/affect, oriented x 3 ICD10 Worksheet Patient Problems: Problems Problem Status Onset Guillain Boyd syndrome Acute Hyponatremia with decreased serum osmolality Acute Lower respiratory infection Acute
[2017-06-01] MEDS ORDERED: LIDOCAINE 2% JELLY 5 ML TUBE TP ONE (11:12)
[2017-06-01] MEDS ORDERED: LIDOCAINE 1% 300 MG/30 ML SDV MISC ONE (11:12)
[2017-06-01] MEDS ORDERED: LIDOCAINE 2% JELLY 5 ML TUBE ONE (11:13)
[2017-06-01] MEDS ORDERED: LIDOCAINE 1% 300 MG/30 ML SDV ONE (11:14)
[2017-06-01] MEDS ORDERED: fentaNYL 100 MCG/2 ML INJ IVP ONE (11:48)
--- NOTE | 2017-06-01 12:08 | GPN ---
[f rep st] PROCEDURE NOTE DATE OF PROCEDURE: 06/01/2017 PULMONARY/CRITICAL CARE CONSULTATION REASON FOR PROCEDURE: Respiratory failure with retained secretions. PROCEDURE NOTE: The risks and benefits of the procedure were explained to the patient's family and t he patient, who agreed to proceed. The entire procedure was performed in the patient's Intensive Car e Unit room under blood pressure EKG and oximetry monitoring. It was my assessment that there was no risk of airborne infection related to the procedure. After an appropriate time-out, 4 cc of 1% lido mayra was instilled into the patient's endotracheal tube, and the patient was given 50 mcg of fentany l. The bronchoscope was advanced through the patient's tracheostomy tube. I encountered some purule nt secretions on the left side of the main meryl, these extended down into the lower lobe, where the re were occlusive purulent plugs, which were easily suctioned. I then turned to the right-sided airw ays, where I encountered occlusive plugs in the bronchus intermedius. These were also easily suction ed, and they extended down into the lower lobe segments, which were then suctioned and lavaged until clear. I then returned to the left-sided airways, where I suctioned out distal plugs from the left l ower lobe, which were removed easily. I did a small volume lavage. All airways were clear of secret ions at the end of the procedure. The patient received an additional 50 mcg of fentanyl and 4 cc of topical lidocaine during the procedure. The patient tolerated the procedure well. No specimens were sent for culture. There were no complications and no bleeding. /[id number]/MODL
[2017-06-01 12:37] VITALS: TEMP 100
--- NOTE | 2017-06-01 12:39 | PDIAF ---
- Diagnosis Diagnosis: guillain barre syndrome Code Status: Full Code - Medication Management Discharge Medications: Medications to Continue on Transfer Levothyroxine [Synthroid 50 mcg (*)] 50 mcg PO DAILY06 05/16/17 [Last Taken 01/23] Lisinopril [Zestril 5 mg (*)] 5 mg PO DAILY 05/16/17 [Last Taken 05/16/17] Acetaminophen [Tylenol 650/20.3ML Oral Liq (*)] 650 mg TUBE Q4H PRN udcup 06/01 [Last Taken Unknown] Acetylcysteine 20% Ih/Po 2 ml IH Q6HRS vial 06/01/17 [Last Taken Unknown] Albuterol [Proventil Neb] 3 ml IH Q6HRS deyvial 06/01/17 [Last Taken Unknown] Enoxaparin [Lovenox 40 MG (*)] 40 mg SC DAILY syr 06/01/17 [Last Taken Unknown] Famotidine [Pepcid 20 MG (*)] 20 mg TUBE BID tab 06/01/17 [Last Taken Unknown] Gabapentin [Neurontin 100 MG (*)] 100 mg TUBE TID cap 06/01/17 [Last Taken Unknown] Labetalol HCl [Trandate 200 mg (*)] 100 mg PO BID tab 06/01/17 [Last Taken Unknown] Loperamide HCl [Imodium 2 mg (*)] 2 mg PO QID PRN cap 06/01/17 [Last Taken Unknown] Melatonin [Melatonin 3 MG (*)] 1.5 mg PO HS tab 06/01/17 [Last Taken Unknown] Ondansetron HCl Pf [Zofran 4 mg Inj (*)] 4 mg IVP Q4HRS PRN vial 06/01/17 [ Last Taken Unknown] Petrolat,Wht/Min Oil/Sod Chl [Refresh P.m. Ointment] 1 winston EACHEYE Q4H opht.oint 06/01/17 [Last Taken Unknown] Polyethylene Glycol 3350 [Miralax 17 gm (*)] 17 gm TUBE DAILY PRN pkt 06/01/17 [Last Taken Unknown] hydrALAZINE [Apresoline 20 MG VIAL] 10 mg IVP Q4HRS PRN vial 06/01/17 [Last Taken Unknown] Discharge Medications: Refer to the Discharge Home Medication list for PRN reason. PICC Care - Routine: Yes - Orders Services needed: Registered Nurse, Physical Therapy, Occupational Therapy Isolation Type: None Diet Recommendation: other (Jevity 1.5 at 65 mLs/hr. Free water flush 200 mLs q2h, will need continued titration based on Na level) - Labs/Radiology BMP Date: 06/02/17 - Follow Up Care Current Providers and Referrals: NICHOLE GONSALVES [Primary Care Provider] - As per Instructions Bandar Brock MD [Medical Doctor] -
--- NOTE | 2017-06-01 12:58 | GDS ---
[f rep st] DISCHARGE SUMMARY DISCHARGE DIAGNOSES: 1. 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 2. 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 3. Pneumonia status post treatment with Levaquin and vancomycin. 4. Hypertension. 5. Hypothyroidism. 6. Hypernatremia. 7. Percutaneous endoscopic gastrostomy tube dependent, tube feeds at goal. CONSULTANTS: 1. Dr. Bandar Brock, Neurology. 2. Dr. Burak Candelaria, Pulmonology. PROCEDURES: 1. Emergent intubation May 17, 2017. 2. PICC line insertion May 17, 2017. 3. Multiple bronchoscopies performed May 21, May 22, May 23, May 26, May 28, May, and June 01 for ongoing mucous plugging. Most recent bronchoscopy grew only Rina. He did have Haemophilus influenzae on May 21 and again was treated with a course of Levaquin. HISTORY OF PRESENT ILLNESS: For details, please see the history and physical dated May 17, 2017. In brief, the patient is a 71-year-old male with history of hypertension and hypothyroidism, who pres ents to the emergency department with weakness, falls, and paresthesias. He was admitted to the hosp [facility] for further evaluation. HOSPITAL COURSE: Patient was initially admitted to the step-down unit. His weakness rapidly progres sed and he required emergent intubation. Neurology consult was obtained. He was diagnosed with Guil bean-[place] syndrome and started on IVIg therapy which is completed. He also underwent whole spine MR I imaging on admission which did not reveal any other explanation for his weakness. As above, he req uired multiple bronchoscopies for ongoing mucous plugging. He was treated with Levaquin and vancomyc in for possible pneumonia. He ultimately required tracheostomy and continues to be vent dependent. A PEG tube was placed and he is currently on Jevity 1.5 high-calorie tube feeds at goal of 65 mL/h. His sodium has crept up to 154. He has had his free water increased into his PEG tube, currently at 200 mL every 2 hours. He will need a repeat basic metabolic panel tomorrow with ongoing titration of his free water. He has an indwelling Reddy. His white count teena to 20,000 the day before transfer to [facility]. Urinalysis was performed which was completely negative. He has had no other evidence of r ecurrent bacterial infection and his white count did come down to 14,000 on the day of transfer. C d ifficile was negative on May 31. His prognosis remains poor at the time of transfer to LTAC as he continues to have marked flaccidity and is only able to communicate via his eyebrows. I discussed th e case with Dr. Boyle prior to transport and Pulmonology is also giving a doc-to-doc report. At th is time, he is stable for transfer. DISPOSITION: Patient is transferred to long-term acute care facility in stable condition. FOLLOWUP: 1. Dr. Bandar Brock, Neurology. 2. Dr. Brayden Moreira, Primary Care. DISCHARGE MEDICATIONS: Please see [email or web address] for completed updated outpatient medication list. New me dications on discharge include: 1. Tylenol 650 per tube q.4 hours p.r.n. 2. Albuterol nebs 3 mL inhaled q.6 hours. 3. Lovenox 40 mg subcutaneous daily. 4. Pepcid 20 mg per tube twice daily. 5. Gabapentin 100 mg per tube three times daily. 6. Labetalol 100 mg per tube twice daily. 7. Hydralazine 10 mg IV q.4 hours p.r.n. systolic blood pressure greater than 160. 8. Imodium 2 mg per tube four times daily p.r.n. 9. Melatonin 1.5 mg per tube h.s. 10. Zofran 4 mg IV q.4 hours p.r.n. 11. MiraLAX 17 g per tube daily p.r.n. /[id number]/MODL
--- NOTE | 2017-06-01 13:03 | ASDISCHSUM ---
Discharge Information Plan Status:LTAC Medically Cleared to Leave:06/01/2017 Discharge Date:06/01/2017 CM D/C Disposition:[facility] ADT D/C Disposition:[facility] Projected Discharge Date:06/01/2017 02:00 PM Transportation at D/C:ALS/BLS Discharge Delay Reason: Follow-Up Date:06/01/2017 02:00 PM Discharge Slot: Final Diagnosis:Bilat weakness, Hyponatremia, Resp failure Placement Information Referral Type:Skilled Nursing Acute [facility] Referral ID:[id number] Provider Name:[facility] Address 1:[address] Address 2: City:[place] Selection Factors: State:[place] Patient Contact Information Contact Name:MILKAMARYJaleesa Relationship: Address:[address] City:[place] Alternate Phone: State/Zip Code:[place] [address] Email: Financial Information Financial Class:Medicare Primary Plan Desc:MEDICARE INPATIENT Primary Plan Number:[id number] Secondary Plan Desc:[employer]/MDR SUPPLEMENT Secondary Plan Number:[id number] Assessment Information [facility] CM Progress Note CM Note CM Note Notes: 71yr old male admitted for bilateral weakness, resp failure, hyponatremia. He has a hx of HTN, Hypothyroid, Severe spinal stenosis. Patient now vented in the ICU. CM to follow for discharge needs. Date Signed: 05/17/2017 09:56 AM Electronically Signed By:Karuna Fritz LCSW [facility] CM Progress Note CM Note CM Note Notes: "Medical Proxy" Patient has not named an MPOA. Spoke to Mela, patient's girlfriend who has been living with him for the past 9yrs. She reports that he has 2 daughters, 1 daughter he doesn't have much contact, the other daughter, Tomasa Sexton [phone] he is in contact. Mela reports that patient also has a sister, Marizol Canela [phone] that he is close to. Mela thought Tomasa would make the best Medical Proxy. Mairzol also in agreement that Tomasa could be in the position of medical decision maker. Tomasa [phone] has agreed to be the Med Proxy. Patient continues on the vent, unable to move his limbs, answers "yes" and "no" with eye blinks and eyebrow raising. 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 Date Signed: 05/18/2017 03:32 PM Electronically Signed By:Karuna Fritz LCSW [employer] Progress Note CM Note CM Note Notes: Patient has acute hypercarbic respiratory failure but is stable on mechanical ventilation. He is tolerating tube feeds but there is no improvement in his neuromuscular weakness. Patient is only able to communicate using his eyes, no other spontaneous movements. D/C plan remains TBD. CM will follow. Date Signed: 05/21/2017 02:34 PM Electronically Signed By:Elizabeth Whitt LCSW [facility] CM Progress Note CM Note CM Note Notes: Patient severely movement compromised. He is to be Trached and PEG tube placed this week. Patient will need LTAC placement. DaughterTomasa, declined "Family Meeting" today-she is interested in meeting later this week. Date Signed: 05/24/2017 05:06 PM Electronically Signed By:Karuna Fritz LCSW [employer] [facility] Progress Note CM Note CM Note Notes: Spoke to Tomasa loomis about the need for a Skilled Nursing Acute Hospital for patient. A list of LTAC's left with RN for daughter to check. Tomasa lives in [place] so we talked about [facility] being the closest to her. A referral sent to [facility] and this CM did talk to their Admissions, Karlee. Date Signed: 05/25/2017 03:51 PM Electronically Signed By:Karuna Fritz LCSW [employer] Progress Note CM Note CM Note Notes: Spoke with patient's daughterTomasa who says they have not made up their mind about facility for patient yet. Mela, patient's partner will return tomorrow and they are going to talk over their preferences and decide then. Tomasa requested a general letter she can use to help take care of her father's personal affairs. This was prepared and given to Tomasa. CM will follow. Date Signed: 05/26/2017 12:12 PM Electronically Signed By:Elizabeth Whitt LCSW [facility] CM Progress Note CM Note CM Note Notes: Met with family for care team meeting at 12 noon. The patient's family is happy with care and demographics of LTAC. They are to go tour the facility. Dora Alves, myself and Dylon from Spiritual services present. Questions answered. Plan to LTAC when medically stable. CM to follow. Date Signed: 05/27/2017 02:39 PM Electronically Signed By:Camille Elliott RN [facility] CM Progress Note CM Note CM Note Notes: Patient discussed in am rounds 71 lesvia old male with dx of Guillian- [place] Syndrome . Will have repeat bronchoscopy this afternoon. Family looking at various LTAC facilities in the area this Wednesday. Referral in place for [facility] in place. CM to follow. Date Signed: 05/28/2017 02:38 PM Electronically Signed By:Camille Elliott RN [facility] CM Progress Note CM Note CM Note Notes: Spoke to Daughter, Tomasa and Mela, they are interested in patient being admitted at [facility]. Contacted [facility] and sent updated patient info to them. Also faxed the [facility] paperwork provided by Tomasa. Patient may be able to be transferred today, if not tomorrow. Date Signed: 05/31/2017 11:41 AM Electronically Signed By:Karuna Fritz LCSW Case Management Discharge Plan Note Case Management Discharge Discharge Order Complete? Answers: Yes Patient to Obtain Answers: Other Notes: [facility] Medications Transportation Arranged Answers: [facility] will Pick (Date 06/01/2017 02:00 PM & Time) Case Management Transport Answers: Yes Form Complete Faxed Final Orders Answers: Yes Notes: [facility] Family Notified Answers: Yes Notes: Daughter and girlfriend in room Discharge Comments Notes: Patient has been discharged today to [facility]. Date Signed: 06/01/2017 01:01 PM Electronically Signed By:Karuna Fritz LCSW Intervention Information
[2017-06-01 14:13] VITALS: BP 155/72; PULSE 80; O2SAT 100
== END 2017-06-01 14:40 | DRG 3 ==
LOC: EDUNIT# → F3N 23:08 → F2N 05-17 04:50 → OBSVTOIN 05-17 07:25
PROVIDERS: ADMIT Family Medicine; ATTEND Family Medicine
PROC: 009U3ZX Drainage of Spinal Canal, Percutaneous Approach, Diagnostic (ICD-10-PCS; 2017-05-17)
PROC: 5A1955Z Respiratory Ventilation, Greater than 96 Consecutive Hours (ICD-10-PCS; 2017-05-17)
PROC: 0BH17EZ Insertion of Endotracheal Airway into Trachea, Via Natural or Artificial Opening (ICD-10-PCS; 2017-05-17)
PROC: 02HV33Z Insertion of Infusion Device into Superior Vena Cava, Percutaneous Approach (ICD-10-PCS; 2017-05-17)
PROC: 0B9G8ZZ Drainage of Left Upper Lung Lobe, Via Natural or Artificial Opening Endoscopic (ICD-10-PCS; principal; 2017-05-21)
PROC: 0B9C8ZZ Drainage of Right Upper Lung Lobe, Via Natural or Artificial Opening Endoscopic (ICD-10-PCS; principal; 2017-05-21)
PROC: 0B9J8ZZ Drainage of Left Lower Lung Lobe, Via Natural or Artificial Opening Endoscopic (ICD-10-PCS; principal; 2017-05-21)
PROC: 0B9J8ZX Drainage of Left Lower Lung Lobe, Via Natural or Artificial Opening Endoscopic, Diagnostic (ICD-10-PCS; principal; 2017-05-21)
PROC: 0B9F8ZZ Drainage of Right Lower Lung Lobe, Via Natural or Artificial Opening Endoscopic (ICD-10-PCS; principal; 2017-05-21)
PROC: 0B9J8ZZ Drainage of Left Lower Lung Lobe, Via Natural or Artificial Opening Endoscopic (ICD-10-PCS; 2017-05-22)
PROC: 0B9G8ZZ Drainage of Left Upper Lung Lobe, Via Natural or Artificial Opening Endoscopic (ICD-10-PCS; 2017-05-22)
PROC: 0B9K8ZZ Drainage of Right Lung, Via Natural or Artificial Opening Endoscopic (ICD-10-PCS; 2017-05-22)
PROC: 0B9J8ZZ Drainage of Left Lower Lung Lobe, Via Natural or Artificial Opening Endoscopic (ICD-10-PCS; 2017-05-23)
PROC: 0B9K8ZZ Drainage of Right Lung, Via Natural or Artificial Opening Endoscopic (ICD-10-PCS; 2017-05-23)
PROC: 0B113F4 Bypass Trachea to Cutaneous with Tracheostomy Device, Percutaneous Approach (ICD-10-PCS; 2017-05-26)
PROC: 0B9M8ZZ Drainage of Bilateral Lungs, Via Natural or Artificial Opening Endoscopic (ICD-10-PCS; 2017-05-26)
PROC: 0D164J4 Bypass Stomach to Cutaneous with Synthetic Substitute, Percutaneous Endoscopic Approach (ICD-10-PCS; 2017-05-26)
PROC: 0B938ZZ Drainage of Right Main Bronchus, Via Natural or Artificial Opening Endoscopic (ICD-10-PCS; 2017-05-27)
PROC: 0B9F8ZZ Drainage of Right Lower Lung Lobe, Via Natural or Artificial Opening Endoscopic (ICD-10-PCS; 2017-05-27)
PROC: 0B938ZZ Drainage of Right Main Bronchus, Via Natural or Artificial Opening Endoscopic (ICD-10-PCS; 2017-05-28)
PROC: 0B9F8ZZ Drainage of Right Lower Lung Lobe, Via Natural or Artificial Opening Endoscopic (ICD-10-PCS; 2017-05-30)
PROC: 0B9J8ZZ Drainage of Left Lower Lung Lobe, Via Natural or Artificial Opening Endoscopic (ICD-10-PCS; 2017-06-01)
PROC: 0B938ZZ Drainage of Right Main Bronchus, Via Natural or Artificial Opening Endoscopic (ICD-10-PCS; 2017-06-01)
DX: G61.0 Guillain-Barre syndrome (principal); J96.21 Acute and chronic respiratory failure with hypoxia; J18.9 Pneumonia, unspecified organism; E87.0 Hyperosmolality and hypernatremia; I10 Essential (primary) hypertension; E03.9 Hypothyroidism, unspecified; J20.8 Acute bronchitis due to other specified organisms; B30.9 Viral conjunctivitis, unspecified
CPT/HCPCS: 92523-GN; 97166-GO; B4087; C1751; G0378; G8987-GO-CN; G8988-GO-CM; G9162-GN-CN; G9163-GN-CL; J0171; J0360; J1459; J1650; J1940; J1956; J2060; J2250; J2704; J2765; J3010; J3370; J3480; J7608; J7613